=== PATIENT | male | born 1980 | race Caucasian/White ===

== ENCOUNTER 2016-09-05 11:30 | Emergency (ER) | payer OTHER ==
[2016-09-05 12:54] LABS: BILIRUBIN,URINE NEGATIVE (NEGATIVE); PH,URINE 5.5 PH (5.0-7.5)
[2016-09-05 13:02] LABS: UA w/ MICROSCOPIC CHARGE YES
[2016-09-05 13:09] LABS: UR CULTURE IF IND NOT INDICATED
--- NOTE | 2016-09-05 13:38 | XRAY Preliminary Report ---
Exam: XR Lumbar Spine 2 View IMPRESSION: Unremarkable lumbar spine series. [facility] SITE ID: [id number]
--- NOTE | 2016-09-05 13:42 | XRAY Report ---
EXAM: LUMBOSACRAL SPINE RADIOGRAPHY EXAM DATE: 09/05/2016 01:22 PM. CLINICAL HISTORY: Low back pain; lifting injury. COMPARISONS: Lumbar spine 01/08/2009. TECHNIQUE: 3 views. FINDINGS: Alignment: Normal. No spondylolisthesis or scoliosis. Bones: Five [id number] lumbar vertebral bodies are present. No fractures or bone lesions. Disks: Disk spaces maintained with minimal lower thoracic anterior osteophytes. Facets: No degenerative changes. Sacroiliac Joints: Unremarkable. Soft Tissues: Moderate amount of stool within the colon. IMPRESSION: Unremarkable lumbar spine series. [facility] Referring Provider Line: [phone] SITE ID: [id number]
--- NOTE | 2016-09-05 14:00 | ED Physician Documentation ---
PD HPI BACK PAIN - Stated complaint Stated Complaint: BACK PAIN - Chief complaint Chief Complaint: Back Pain - History obtained from History obtained from: Patient - History of Present Illness Timing - onset: How many weeks ago (2) Timing - duration: Weeks (2) Timing - details: Abrupt onset, Still present (was lifting heavy object with coworker at work and felt onset of lower back pain, more on left, which has persisted since then. Worse with bending and lifting, but also some pain just consistent unrelated to movement.) Location: Lower, Right, Left (worse on left) Quality: Pain, Spasm, Aching Associated symptoms: No: Fever, Weakness, Numbness, Incontinent of urine Improves with: No: Rest Worsened by: Movement, Lifting Contributing factors: Lifting Similar symptoms before: Has not had sx before Recently seen: Not recently seen Review of Systems Constitutional: denies: Fever, Chills GI: denies: Nausea, Vomiting, Diarrhea : denies: Dysuria, Frequency, Hematuria Skin: denies: Rash, Lesions PD PAST MEDICAL HISTORY - Past Medical History Cardiovascular: Hypertension Respiratory: None Neuro: None Endocrine/Autoimmune: None GI: Other : None HEENT: None Psych: Depression Musculoskeletal: None Derm: None - Past Surgical History Past Surgical History: No HEENT: Tonsil/Adenoidectomy - Present Medications Home Medications: Ambulatory Orders Medication Instructions Recorded Confirmed Dexamethasone [Decadron] 4 mg PO DAILY #5 tablet 09/05/16 Hydrocodone/Acetaminophen [[facility] 1 each PO Q6H PRN #20 tablet 09/05/16 5-325 Tablet] Lisinopril 50 mg PO DAILY 09/05/16 09/05/16 Methocarbamol [Robaxin] 500 mg PO Q6H PRN #25 tablet 09/05/16 Tamsulosin [Flomax] 0.4 mg PO DAILY #10 capsule 09/05/16 - Allergies Allergies/Adverse Reactions: Allergies Allergy/AdvReac Type Severity Reaction Status Date / Time No Known Drug Allergies Allergy Verified 06/09/15 20:48 - Social History Does the pt smoke?: Yes Smoking Status: Current every day smoker Does the pt drink ETOH?: Yes Does the pt have substance abuse?: No - Immunizations Immunizations are current?: Yes PD ED PE NORMAL - Vitals Vital signs reviewed: Yes - General General: Alert and oriented X 3, Well developed/nourished - Neck Neck: Supple, no meningeal sign, No adenopathy - Cardiac Cardiac: RRR, No murmur - Respiratory Respiratory: Clear bilaterally - Abdomen Abdomen: Soft, Non tender - Back Back: No spinal TTP, Other (some muscular tenderness lower back left and right. Mild left CVA tenderness. ) - Derm Derm: Normal color, Warm and dry - Extremities Extremities: No tenderness to palpate, Normal ROM s pain - Neuro Neuro: Alert and oriented X 3, No motor deficit, No sensory deficit, Normal speech Results - Vitals Vitals: Oxygen O2 Source Room air - Labs Labs: Laboratory Tests 09/05/16 12:40 Urine Color YELLOW Urine Clarity CLEAR Urine pH 5.5 Ur Specific Scott 1.025 Urine Protein NEGATIVE Urine Glucose (UA) NEGATIVE Urine Ketones NEGATIVE Urine Occult Blood MODERATE H Urine Nitrite NEGATIVE Urine Bilirubin NEGATIVE Urine Urobilinogen 0.2 (NORMAL) Ur Leukocyte Esterase NEGATIVE Urine RBC TNTC H Urine WBC 4-5 Ur Squamous Epith Cells FEW Squamous Urine Bacteria Few Urine Mucus Moderate Strands Ur Microscopic Review INDICATED Urine Culture Comments NOT INDICATED - Rads (name of study) KUB CT Radiology: Prelim report reviewed, EMP read contemporaneously (small stone left proximal ureter 3-4 mm. ) PD MEDICAL DECISION MAKING - ED course Complexity details: considered differential (Component of the back pain sounds muscular. He also has some steady pain that is from a urteral stone, presume started passing along the same time. ), d/w patient Departure - Departure Disposition: 01 Home, Self Care Clinical Impression: Ureteral stone Back pain Qualifiers: Back pain location: low back pain Chronicity: acute Back pain laterality: bilateral Sciatica presence: without sciatica Qualified Code(s): M54.5 - Low back pain Low back strain Qualifiers: Encounter type: initial encounter Qualified Code(s): S39.012A - Strain of muscle, fascia and tendon of lower back, initial encounter Condition: Stable Record reviewed to determine appropriate education?: Yes Instructions: ED Sprain Strain Lumbar, ED Stone Renal W Colic Prescriptions: Dexamethasone [Decadron] 4 mg PO DAILY #5 tablet Tamsulosin [Flomax] 0.4 mg PO DAILY #10 capsule Hydrocodone/Acetaminophen [[facility] 5-325 Tablet] 1 each PO Q6H PRN #20 tablet PRN Reason: Pain Methocarbamol [Robaxin] 500 mg PO Q6H PRN #25 tablet PRN Reason: Spasms Comments: Drink lots of fluids. Some component of your back pain sounds muscular, so limited heavy lifting, muscle relaxant, and pain med as needed. You are passing a kidney stone though, and I think the main part of your back pain is from that. Similar meds, but also add tamsulosin to decrease ureteral tone. Follow up Urology in [place] for that, call for an appt. [facility] - Urology [phone]. Forms: Activity restrictions Discharge Date/Time: 09/05/16 14:18
[2016-09-05 14:15] VITALS: BP 128/78
--- NOTE | 2016-09-05 14:16 | CT Preliminary Report ---
Exam: CT KUB IMPRESSION: There is mild left hydronephrosis secondary to a 0.3 x 0.2 cm stone within the upper left ureter. [facility] SITE ID: [id number]
--- NOTE | 2016-09-05 14:19 | CT Report ---
EXAM: CT ABDOMEN AND PELVIS (CT KUB) EXAM DATE: 09/05/2016 01:58 PM. CLINICAL HISTORY: Back pain, blood in urine. COMPARISONS: 06/09/2015. TECHNIQUE: Routine axial helical CT imaging was performed through the abdomen and pelvis without IV c ontrast. Reconstructions: Coronal and sagittal. In accordance with CT protocol optimization, one or more of the following dose reduction techniques w ere utilized for this exam: automated exposure control, adjustment of mA and/or KV based on patient s ize, or use of iterative reconstructive technique. FINDINGS: Lung Bases: Normal. Right Kidney/Ureter: No stones, hydronephrosis, or hydroureter. No perinephric fat stranding. Left Kidney/Ureter: No stones, hydronephrosis, or hydroureter. No perinephric fat stranding. Other Solid Organs: There is a 0.3 cm nonobstructing stone within the upper left kidney. There is mil d left hydronephrosis secondary to a 0.3 x 0.2 cm stone within the upper left ureter. No evidence of significant perinephric stranding. Gallbladder/Bile Ducts: Unremarkable. Peritoneal Cavity: No free fluid, free air or angelina adenopathy. Bowel is grossly unremarkable. Pelvic Organs: No bladder stones or wall thickening. Noncontrast images of the visualized pelvic orga ns are unremarkable. Vasculature: Unremarkable. Other: None. IMPRESSION: There is mild left hydronephrosis secondary to a 0.3 x 0.2 cm stone within the upper left ureter. [facility] Referring Provider Line: [phone] SITE ID: [id number]
== END 2016-09-05 14:18 | disposition home or self-care (01) ==
LOC: ED 11:30
DX: N13.2 Hydronephrosis with renal and ureteral calculous obstruction (principal); M54.5 Low back pain; S39.012A Strain of muscle, fascia and tendon of lower back, initial encounter; X50.0XXA Overexertion from strenuous movement or load, initial encounter; Y93.89 Activity, other specified; Y92.89 Other specified places as the place of occurrence of the external cause; Y99.0 Civilian activity done for income or pay; I10 Essential (primary) hypertension; F17.200 Nicotine dependence, unspecified, uncomplicated
CPT/HCPCS: 1040M; 72100; 74176; 81001; 81003; 87086; 99283; 99284

== ENCOUNTER 2017-07-16 19:30 | Inpatient (IN) | payer OTHER, MEDICAID ==
[2017-07-16] MEDS ORDERED: IBUPROFEN 800 MG TABLET PO STA (20:17)
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
[2017-07-16 21:27] LABS: BASOPHILS % (AUTO) 0.2 %; EOSINOPHILS % (AUTO) 0.1 %; HGB - HEMOGLOBIN 16.5 g/dL (14.0-18.0); LYMPHOCYTES # (AUTO) 1.6 10^3/uL (1.5-3.5); LYMPHOCYTES % (AUTO) 8.5 %; MEAN CORPUSCULAR HEMOGLOBIN 28.2 pg (27.0-31.0); MEAN CORPUSCULAR HGB CONC 32.7 g/dL (32.0-36.0); MEAN CORPUSCULAR VOLUME 86.1 fL (80.0-94.0); MEAN PLATELET VOLUME 6.5 fL (7.4-11.4); MONOCYTES # (AUTO) 1.7 10^3/uL (0.0-1.0); MONOCYTES % (AUTO) 8.8 %; NEUTROPHILS # (AUTO) 15.6 10^3/uL (1.5-6.6); NEUTROPHILS % (AUTO) 82.4 %; PLT - PLATELET COUNT 297 10^3/uL (130-450); RED BLOOD COUNT 5.85 10^6/uL (4.70-6.10); RED CELL DISTRIBUTION WIDTH 14.2 % (12.0-15.0); WHITE BLOOD COUNT 18.9 x10^3/uL (4.8-10.8)
[2017-07-16 21:36] LABS: CALCIUM 8.9 mg/dL (8.5-10.3); CREATININE 1.2 mg/dL (0.6-1.2)
--- NOTE | 2017-07-16 21:37 | XRAY Preliminary Report ---
Exam: XR RIBS W/PA CHEST LT IMPRESSION: 1. Positive for lateral left sixth, seventh, eighth rib fractures with a small left pneumothorax. Cri tical result. [facility] The above critical findings were discussed with Michael by Dr. Luis Daniel Godinez at 21:36 hrs on 07/16/17. SITE ID: [id number]
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
[2017-07-16 21:47] LABS: PT - PROTHROMBIN TIME 11.4 secs (9.9-12.6)
[2017-07-16 21:52] LABS: PLATELET ESTIMATE, MANUAL NORMAL (130-450,000) (NORMAL); PLATELET MORPHOLOGY NORMAL APPEARANCE (NORMAL); RBC MORPHOLOGY (MULTIPLE) NORMAL APPEARANCE (NORMAL)
[2017-07-16] MEDS ORDERED: HYDROmorphone 0.5 MG/0.5 ML SYRINGE IVP PRN (22:18)
--- NOTE | 2017-07-16 22:31 | CT Preliminary Report ---
Exam: CT HEAD W/O IMPRESSION: 1. No acute intracranial process. 2. Small volume left occipital subcutaneous emphysema is related to the patient's known left pneumoth orax. [facility] SITE ID: [id number]
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
[2017-07-16] MEDS: HYDROcod/ACETAM 5/325 MG TABLET PO PRN (23:03)
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
[2017-07-17] MEDS: HYDROcod/ACETAM 5/325 MG TABLET PO PRN ×4 (05:10→19:58)
[2017-07-17] MEDS: KETOROLAC 30 MG/ML VIAL IVP PRN ×2 (05:23→10:52)
[2017-07-17] MEDS: SODIUM CHLORIDE FLUSH 0.9% 10 ML SYRINGE IVP SCH ×3 (05:24→19:56)
--- NOTE | 2017-07-17 06:57 | XRAY Preliminary Report ---
Exam: XR CHEST 2 VIEW PA/LAT IMPRESSION: 1. Residual left apical pneumothorax measuring 7.4 mm. 2. Left basilar atelectasis. 3. Left rib fractures with soft tissue emphysema in the left chest wall. [facility] SITE ID: [id number]
--- NOTE | 2017-07-17 06:59 | XRAY Report ---
EXAM: CHEST RADIOGRAPHY EXAM DATE: 07/17/2017 05:24 AM. CLINICAL HISTORY: Left pneumothorax. COMPARISON: 07/16/2017. TECHNIQUE: 2 views. FINDINGS: Lungs/Pleura: Residual left apical pneumothorax measuring 7.4 mm. Left basilar atelectasis. No signif icant pleural effusion. Mediastinum: Heart and mediastinal contours are unremarkable. Other: Left rib fractures. Soft tissue emphysema in the left chest wall. IMPRESSION: 1. Residual left apical pneumothorax measuring 7.4 mm. 2. Left basilar atelectasis. 3. Left rib fractures with soft tissue emphysema in the left chest wall. [facility] Referring Provider Line: [phone] SITE ID: [id number]
[2017-07-17] MEDS ORDERED: buPROPion SR 100 MG TABLET PO SCH (09:00)
[2017-07-17] MEDS ORDERED: LORazepam 0.5 MG TABLET PO PRN (09:09)
[2017-07-17] MEDS: NICOTINE 14 MG PATCH TOP SCH (09:51)
[2017-07-17] MEDS: buPROPion XL 150 MG TABLET PO SCH (09:51)
[2017-07-17] MEDS: SERTRALINE 50 MG TABLET PO SCH (09:51)
[2017-07-17] MEDS: LISINOPRIL 20 MG TABLET PO SCH (09:51)
[2017-07-17] MEDS: SODIUM CHLORIDE FLUSH 0.9% 10 ML SYRINGE IVP PRN ×3 (10:56→12:41)
[2017-07-17] MEDS: HYDROmorphone 0.5 MG/0.5 ML SYRINGE IVP PRN ×2 (12:41)
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
[2017-07-18] MEDS: HYDROmorphone 0.5 MG/0.5 ML SYRINGE IVP PRN ×2 (00:09→05:29)
[2017-07-18] MEDS: KETOROLAC 30 MG/ML VIAL IVP PRN ×2 (05:30→11:04)
[2017-07-18] MEDS: SODIUM CHLORIDE FLUSH 0.9% 10 ML SYRINGE IVP SCH (05:33)
[2017-07-18] MEDS: HYDROcod/ACETAM 5/325 MG TABLET PO PRN ×2 (05:33→09:13)
--- NOTE | 2017-07-18 05:43 | XRAY Preliminary Report ---
Exam: XR CHEST 2 VIEW PA/LAT IMPRESSION: 1. Minimally decreased left apical pneumothorax measuring 6.8 mm. 2. Mild bibasilar atelectasis and trace left pleural effusion. [facility] SITE ID: [id number]
--- NOTE | 2017-07-18 05:46 | XRAY Report ---
EXAM: CHEST RADIOGRAPHY EXAM DATE: 07/18/2017 05:23 AM. CLINICAL HISTORY: Follow-up pneumothorax. COMPARISON: 07/17/2017. TECHNIQUE: 2 views. FINDINGS: Lungs/Pleura: Residual left apical pneumothorax measuring 6.8 mm. Mild bibasilar atelectasis. Trace l eft pleural effusion. No pneumothorax identified on the right. Mediastinum: Heart and mediastinal contours are unremarkable. Other: Left rib fractures. Soft tissue emphysema in the left chest wall. IMPRESSION: 1. Minimally decreased left apical pneumothorax measuring 6.8 mm. 2. Mild bibasilar atelectasis and trace left pleural effusion. [facility] Referring Provider Line: [phone] SITE ID: [id number]
[2017-07-18] MEDS ORDERED: HYDROmorphone 1 MG/ML SYRINGE IVP PRN ×2 (08:58→08:59)
[2017-07-18] MEDS: buPROPion XL 150 MG TABLET PO SCH (09:12)
[2017-07-18] MEDS: LISINOPRIL 20 MG TABLET PO SCH (09:12)
[2017-07-18] MEDS: SERTRALINE 50 MG TABLET PO SCH (09:14)
[2017-07-18] MEDS: SODIUM CHLORIDE FLUSH 0.9% 10 ML SYRINGE IVP PRN ×2 (09:14→11:05)
--- NOTE | 2017-07-18 09:16 | Discharge Plan ---
Discharge Plan Disposition: Home, Self Care Prescriptions: HYDROcod/ACETAM 5/325 [[place] 5/325] 1 - 2 tab PO Q4H PRN #40 tablet PRN Reason: Pain Diet: Regular Activity Restrictions: no lifting Shower Restrictions: No Driving Restrictions: Yes Weight Bearing: Full Weight Additional Instructions or Follow Up instructions: IS 10 q1H Cough and deep breathing CXR 1 week to be done prior to clinic visit No Smoking: If you smoke, Please STOP! Call for help. Follow-up with: Jered Bowling MD [Provider Admit Priv/Credential] - 1 Week
[2017-07-18] MEDS: NICOTINE 14 MG PATCH TOP SCH (11:03)
[2017-07-18 11:34] VITALS: BP 127/61
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
== END 2017-07-18 11:45 | disposition home or self-care (01) | DRG 964 ==
LOC: ED 19:30 → OBS 22:13 → MS3 07-17 08:58 → OBSVTOIN 07-17 08:58
PROVIDERS: ADMIT Surgery; ATTEND Surgery
DX: S27.0XXA Traumatic pneumothorax, initial encounter (principal); S22.42XA Multiple fractures of ribs, left side, initial encounter for closed fracture; S06.9X9A Unspecified intracranial injury with loss of consciousness of unspecified duration, initial encounter; T79.7XXA Traumatic subcutaneous emphysema, initial encounter; Y35.813A Legal intervention involving manhandling, suspect injured, initial encounter; V49.9XXA Car occupant (driver) (passenger) injured in unspecified traffic accident, initial encounter; F10.129 Alcohol abuse with intoxication, unspecified; R40.2412 Glasgow coma scale score 13-15, at arrival to emergency department; I10 Essential (primary) hypertension; F32.9 Major depressive disorder, single episode, unspecified; F17.200 Nicotine dependence, unspecified, uncomplicated
CPT/HCPCS: 70450; 71020; 80048; 85025; 85610; 86850; 86900; 86901; 96374; 96375; 99284; 99285

== ENCOUNTER 2017-07-22 09:46 | Inpatient (IN) | payer OTHER, MEDICAID ==
--- NOTE | 2017-07-22 10:19 | XRAY Preliminary Report ---
Exam: XR CHEST 2 VIEW PA/LAT IMPRESSION: 1. Interval development of small left pleural fluid (pleural effusion or hemothorax) and associated l eft basilar airspace opacity. 2. Slightly increased size of the small left apical pneumothorax. 3. Acute, displaced left 6th-8th rib fractures again demonstrated. [facility] SITE ID: [id number]
--- NOTE | 2017-07-22 10:20 | XRAY Report ---
EXAM: CHEST RADIOGRAPHY EXAM DATE: 07/22/2017 10:06 AM. CLINICAL HISTORY: Rib pain, hx of fx and pneumo. COMPARISON: 07/18/2017. TECHNIQUE: 2 views. FINDINGS: Lungs/Pleura: Interval development of small left pleural fluid with associated left basilar opacity. Slightly increased size of the left pneumothorax with up to 9 mm pleural separation at the apex (prev iously 7 mm). The right lung is clear; no right pleural effusion or pneumothorax. Mediastinum: Heart and mediastinal contours are unremarkable. Other: Displaced, acute left lateral 6th through 8th rib fractures again demonstrated. Decreased left chest wall subcutaneous emphysema with small residual. IMPRESSION: 1. Interval development of small left pleural fluid (pleural effusion or hemothorax) and associated l eft basilar airspace opacity. 2. Slightly increased size of the small left apical pneumothorax. 3. Acute, displaced left 6th-8th rib fractures again demonstrated. [facility] Referring Provider Line: [phone] SITE ID: [id number]
[2017-07-22] MEDS ORDERED: oxyCOD/ACETAMIN 5 MG/325 MG TABLET PO STA (10:37)
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
[2017-07-22] MEDS ORDERED: LACTATED RINGERS 1,000 ML IV ONE (11:56)
[2017-07-22] MEDS ORDERED: BUPIVACAINE 0.5% PF 30 ML VIAL INFIL ONE (12:25)
[2017-07-22] MEDS ORDERED: KETOROLAC 30 MG/ML VIAL IVP ONE (12:26)
[2017-07-22] MEDS ORDERED: MIDAZOLAM 2 MG/2 ML VIAL IVP ONE (12:26)
[2017-07-22] MEDS ORDERED: ONDANSETRON 4 MG/2 ML VIAL IVP ONE (12:26)
[2017-07-22] MEDS ORDERED: PROPOFOL 200 MG/20 ML VIAL IVP ONE (12:26)
[2017-07-22] MEDS ORDERED: LIDOCAINE-MPF 2% 5 ML VIAL IM ONE (12:26)
[2017-07-22] MEDS ORDERED: fentaNYL 100 MCG/2 ML VIAL IVP ONE (12:26)
--- NOTE | 2017-07-22 12:43 | OPERATIVE REPORT ---
Operative Report - General Procedure Date: 07/22/17 Planned Procedure: Left tube thoracostomy Pre-Op Diagnosis: Worsening LEFT hemo-pneumothorax Procedure Performed: LEFT tube thoracostomy Post Op Diagnosis: LEFT hemo-pneumothorax - Procedure Note Primary Surgeon: Wyatt Strong MD Anesthesia Provider: Darvin Sterling Anesthesia Technique: General LMA, Local (30 mL 1/2% marcaine) IV Fluids (mL): 700 Estimated Blood Loss (mL): 2 Drain/Tube Type: Other (32 Fr straight chest tube) Complications: None - Other Other Information/Narrative: OPERATIVE DESCRIPTION/REPORT: After verbal and written informed consent was obtained detailing the risks of infection, bleeding requiring transfusion with its risks, nerve injury, and , and after I met with the patient confirming the surgery, the site of the surgery (signing it), the patient was brought to the operative suite and placed supine on the operating table. Great care was taken to avoid pressure points to prevent pressure necrosis or nerve injury. Monitoring devices were applied along with TEDs and pneumatic compressive stockings (to prevent DVT). The patient received preoperative antibiotics for surgical prophylaxis. Arjun Sterling sedated and anethetized the patient for the entire procedure. The patient was prepped and draped in the usual sterile manner. With the patient draped my initials were clearly visible. A "time in" then confirmed that the patient was identified with 3 identifiers (name, date and medical record number), the history and physical was in the chart, the signed consent confirming the procedure was in the chart, the patient was in the correct position, the aforementioned prophylactic measures were in place or given, we had the correct personnel and equipment to complete the procedure and that anesthesia, surgery and nursing were given an opportunity to express any concerns. With the agreement of everyone in the room, we proceeded with the operation. A transverse incision was made lateral and just below the left nipple in the midaxillary line and dissection down to the ribs was performed using Bovie electrocautery. I went up over the rib and using the Mathur clamp inserted the chest tube into the chest with a return of 1200 mL of blood. The chest tube was then secured at the skin using a 2-0 silk which was Andrés sandaled about the chest tube. The skin was approximated lateral to this using a 2-0 silk mattress suture. The chest tube was then secured to the Pleur-evac. A time out was performed that confirmed that all the counts were correct, the procedure that was performed, the blood loss, the IV fluids administered, and the patients condition. Dressings were then applied. All surgical counts were reported as correct. Having tolerated the procedure well, the patient was subsequently extubated and taken to recovery room in good and stable condition. A post-procedure chest xray was ordered in recovery.
[2017-07-22] MEDS ORDERED: oxyCOD/ACETAMIN 5 MG/325 MG TABLET PO PRN (12:52)
[2017-07-22] MEDS ORDERED: HYDROmorphone 1 MG/ML SYRINGE ONE (12:54)
[2017-07-22] MEDS: HYDROmorphone 0.5 MG/0.5 ML SYRINGE IVP PRN ×3 (12:55→13:16)
[2017-07-22] MEDS ORDERED: SODIUM CHLORIDE FLUSH 0.9% 10 ML SYRINGE IVP PRN (13:02)
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
[2017-07-22] MEDS ORDERED: HYDROmorphone 1 MG/ML SYRINGE IVP PRN (13:32)
[2017-07-22] MEDS: SODIUM CHLORIDE FLUSH 0.9% 10 ML SYRINGE IVP SCH ×3 (13:40→20:16)
[2017-07-22] MEDS: DEXTROSE 5%-0.9% NACL 1,000 ML IV SCH (13:51)
[2017-07-22] MEDS: oxyCODONE 5 MG TABLET PO PRN ×3 (13:51→22:11)
[2017-07-22] MEDS: ACETAMINOPHEN 1,000 MG/100 ML 100 ML IV SCH ×2 (13:54→20:15)
[2017-07-22] MEDS: HYDROmorphone 1 MG/ML SYRINGE IVP PRN ×4 (17:51→22:11)
[2017-07-22] MEDS: SODIUM CHLORIDE FLUSH 0.9% 10 ML SYRINGE IVP PRN ×2 (17:51→18:51)
[2017-07-22] MEDS: NICOTINE 14 MG PATCH TOP SCH (17:53)
[2017-07-23] MEDS: HYDROmorphone 1 MG/ML SYRINGE IVP PRN ×16 (00:10→21:30)
[2017-07-23] MEDS: SODIUM CHLORIDE FLUSH 0.9% 10 ML SYRINGE IVP PRN ×8 (00:11→20:01)
[2017-07-23] MEDS: DEXTROSE 5%-0.9% NACL 1,000 ML IV SCH ×3 (01:01→23:02)
[2017-07-23] MEDS: oxyCODONE 5 MG TABLET PO PRN ×4 (02:01→20:00)
[2017-07-23] MEDS: ACETAMINOPHEN 1,000 MG/100 ML 100 ML IV SCH ×4 (03:16→20:01)
[2017-07-23] MEDS: LORazepam 2 MG/ML VIAL IVP PRN ×2 (03:32→10:42)
--- NOTE | 2017-07-23 05:53 | XRAY Preliminary Report ---
Exam: XR CHEST 2 VIEW PA/LAT IMPRESSION: 1. Left chest tube in place with left basilar atelectasis or consolidation and possibly a small amoun t of residual left pleural fluid. 2. Left apical pneumothorax measuring 5 mm. [facility] SITE ID: [id number]
--- NOTE | 2017-07-23 05:56 | XRAY Report ---
EXAM: CHEST RADIOGRAPHY EXAM DATE: 07/23/2017 05:42 AM. CLINICAL HISTORY: Hemo-pneumothorax s/p tube thoracostomy. COMPARISON: 07/22/2017. TECHNIQUE: 2 views. FINDINGS: Lungs/Pleura: Left basilar atelectasis or consolidation. There may be a small amount of residual pleu ral fluid on the left. Left apical pneumothorax measuring 5 mm. Right lung shows no significant abnor mality. Mediastinum: Heart and mediastinal contours are unremarkable. Other: Left rib fractures. Left chest tube in place. IMPRESSION: 1. Left chest tube in place with left basilar atelectasis or consolidation and possibly a small amoun t of residual left pleural fluid. 2. Left apical pneumothorax measuring 5 mm. [facility] Referring Provider Line: [phone] SITE ID: [id number]
[2017-07-23] MEDS: SODIUM CHLORIDE FLUSH 0.9% 10 ML SYRINGE IVP SCH ×6 (06:07→20:01)
[2017-07-23] MEDS: PANTOPRAZOLE 40 MG TABLET PO SCH (06:58)
[2017-07-23] MEDS: NICOTINE 14 MG PATCH TOP SCH (20:08)
--- NOTE | 2017-07-23 21:28 | PROVIDER PROGRESS NOTE ---
Subjective - Prog Note Date Prog Note Date: 07/23/17 Prog Note Time: 21:26 - Subjective Subjective: I was asked to see the patient by Dr. Baca with regards to the patient's pain management. While the patient does take serotonin reuptake inhibitors, and Wellbutrin at home, he does not take any long-acting or short-acting opiates in the outpatient setting. While here he has been requesting oral oxycodone as well as IV Dilaudid. Intervals of increased to almost every 30 minutes to relieve his pain. Nursing has requested that we begin a INFORMATICS MANAGER since he is pressing the button about every 30 minutes for pain. He states the pain is from the chest to. Worse with ambulation and getting up, but still present even when laying down. He reiterates that he does not take any opiates at home. Other than the chest tube pain, and rib pain, he denies any abdominal pain. Nausea. Headache. Shortness of breath. Current Medications - Current Medications Current Medications: Active Medications Bupropion HCl (Wellbutrin Xl) 150 mg PO DAILY YAW Hydromorphone HCl (Dilaudid Inj Syringe) 0.5 mg IVP Q30M PRN PRN Reason: BREAKTHROUGH PAIN Last Admin: 07/23/17 20:26 Dose: 0.5 mg Dextrose/Sodium Chloride (D5ns) 1,000 mls @ 100 mls/hr IV .Q10H YAW Last Admin: 07/23/17 12:56 Dose: 100 mls/hr Acetaminophen (Ofirmev) 100 mls @ 400 mls/hr IV Q6H YAW Last Infusion: 07/23/17 20:15 Dose: Infused Lisinopril (Zestril) 20 mg PO DAILY [facility] Lorazepam (Ativan) 0.5 mg PO TID PRN PRN Reason: Anxiety Nicotine (Nicoderm) 1 patch TOP Q24H YAW Last Admin: 07/23/17 20:08 Dose: 1 patch Oxycodone HCl (Roxicodone) 5 mg PO Q4HR PRN PRN Reason: SEVERE PAIN Last Admin: 07/23/17 20:00 Dose: 5 mg Pantoprazole Sodium (Protonix) 40 mg PO QDAC YAW Last Admin: 07/23/17 06:58 Dose: 40 mg Sertraline HCl (Zoloft) 50 mg PO DAILY YAW Sodium Chloride (Normal Saline Flush 0.9%) 10 ml IVP Q8HR YAW Last Admin: 07/23/17 15:52 Dose: 10 ml Sodium Chloride (Normal Saline Flush 0.9%) 10 ml IVP PRN PRN PRN Reason: NEEDED PER PROVIDER ORDERS Last Admin: 07/23/17 20:01 Dose: 10 ml Sodium Chloride (Normal Saline Flush 0.9%) 10 ml IVP Q8HR YAW Last Admin: 07/23/17 20:01 Dose: 10 ml Bupropion HCl [Bupropion Xl] 150 mg PO DAILY 07/17/17 LORazepam [Ativan] 0.5 - 1 mg PO TID PRN 07/17/17 Lisinopril 20 mg PO DAILY 07/17/17 Sertraline [Zoloft] 50 mg PO DAILY 07/17/17 Objective - Vital Signs/Intake & Output Reviewed Vital Signs: Yes Vital Signs: Vital Signs x48h Temp Pulse Resp BP Pulse Ox 07/23/17 15:59 36.7 C 81 16 115/69 97 Intake & Output: Intake & Output 07/20/17 07/21/17 07/22/17 07/23/17 23:59 23:59 23:59 23:59 Intake Total 2585 3315 Output Total 136 55 Balance 2449 3260 - Objective General Appearance: positive: No acute distress, Alert (Watching TV) Eyes Bilateral: positive: PERRL, EOMI ENT: positive: Dry mucous membranes Neck: positive: No JVD. negative: Stiff neck Respiratory: positive: No respiratory distress, Other (Painful rib and chest tube). negative: Wheezes, Rales, Rhonchi Cardiovascular: positive: Regular rate & rhythm, No murmur. negative: Gallop/S4 , Friction rub Abdomen: positive: Non-tender, No organomegaly, Nml bowel sounds, No distention Skin: positive: Warm, Dry Extremities: positive: Full ROM, No pedal edema Neurologic/Psychiatric: positive: Oriented x3, CN's nml (2-12), Motor nml Assessment/Plan - Problem List (1) Hemopneumothorax on left Impression: Left tube thoracostomy Pod #1 Followed by General Surgery (2) Pain associated with surgical procedure Impression: He is adamant the pain is not controlled with the current regimen. will start INFORMATICS MANAGER
[2017-07-23] MEDS: HYDROmorphone PCA 10 MG IV PRN (21:55)
[2017-07-24] MEDS: SODIUM CHLORIDE FLUSH 0.9% 10 ML SYRINGE IVP SCH ×6 (00:12→21:48)
[2017-07-24] MEDS: LORazepam 0.5 MG TABLET PO PRN ×2 (02:31→16:31)
[2017-07-24] MEDS: ACETAMINOPHEN 1,000 MG/100 ML 100 ML IV SCH ×4 (02:32→21:02)
[2017-07-24] MEDS: PANTOPRAZOLE 40 MG TABLET PO SCH (06:18)
[2017-07-24] MEDS: POLYETHYLENE GLYCOL 3350 17 GM PACKET PO SCH (08:24)
[2017-07-24] MEDS: buPROPion XL 150 MG TABLET PO SCH (08:25)
[2017-07-24] MEDS: SERTRALINE 50 MG TABLET PO SCH (08:25)
[2017-07-24] MEDS: LISINOPRIL 20 MG TABLET PO SCH (08:25)
[2017-07-24] MEDS: HYDROmorphone PCA 10 MG IV PRN ×2 (08:27→17:30)
[2017-07-24] MEDS ORDERED: DOCUSATE SODIUM 250 MG CAPSULE PO SCH (09:00)
[2017-07-24] MEDS: DEXTROSE 5%-0.9% NACL 1,000 ML IV SCH ×2 (10:16→22:06)
--- NOTE | 2017-07-24 12:13 | XRAY Report ---
DATE OF SERVICE: 07/22/2017 FRONTAL CHEST: 07/22/2017 CLINICAL INDICATION: Chest tube placement. COMPARISON: 0956 hours, 07/18/2017, 07/16/2017. FINDINGS: Frontal view of the chest demonstrates a left chest tube in place. Residual medial and apical left pneumothorax is noted. Left pleural fluid has decreased. The right lung remains clear. No right pneumothorax. Left rib fractures appear stable. IMPRESSION: Residual left medial and apical pneumothorax following left chest tube placement. Decrease in left pleural fluid. TD: 07/22/2017 20:33 MTDD
[2017-07-24] MEDS: DOCUSATE SODIUM 250 MG CAPSULE PO SCH (16:31)
[2017-07-24] MEDS: NICOTINE 14 MG PATCH TOP SCH (17:39)
[2017-07-24] MEDS: oxyCODONE 5 MG TABLET PO PRN (18:24)
--- NOTE | 2017-07-24 20:11 | XRAY Report ---
DATE OF SERVICE: 07/24/2017 FRONTAL CHEST: 07/24/2017 CLINICAL INDICATION: Left chest tube. COMPARISON: 07/23/2017 FINDINGS: Frontal view of the chest demonstrates a stable left chest tube. Residual left apical pne umothorax measures 4 mm. There is increasing left basilar atelectasis or infiltrate. The right lung remains c lear. No right effusion or pneumothorax is seen. IMPRESSION: A 4 mm residual left apical pneumothorax. Increasing atelectasis or consolidation at th e left base. Stable chest tube. TD: 07/24/2017 10:20
[2017-07-25] MEDS: HYDROmorphone PCA 10 MG IV PRN ×3 (01:29→20:05)
[2017-07-25] MEDS: ACETAMINOPHEN 1,000 MG/100 ML 100 ML IV SCH ×4 (01:34→20:03)
[2017-07-25] MEDS: SODIUM CHLORIDE FLUSH 0.9% 10 ML SYRINGE IVP SCH ×6 (01:38→20:18)
--- NOTE | 2017-07-25 06:46 | XRAY Report ---
EXAM: CHEST RADIOGRAPHY EXAM DATE: 07/25/2017 05:25 AM. CLINICAL HISTORY: Left chest tube. COMPARISON: 07/24/2017.. TECHNIQUE: 1 view. FINDINGS: Lungs/Pleura: Left apical pneumothorax appears decreased, measuring about 3 mm. Persistent atelectasi s or infiltrate at the left base. Possible small left pleural effusion. Minimal right basilar opacity is unchanged. Mediastinum: Within exam limitations, the cardiomediastinal contour is normal. Other: Left rib fractures. Left chest tube in place. IMPRESSION: 1. Decreased left pneumothorax measuring about 3 mm. 2. Otherwise similar compared with the prior exam. [facility] Referring Provider Line: [phone] SITE ID: [id number]
[2017-07-25] MEDS: PANTOPRAZOLE 40 MG TABLET PO SCH (07:03)
[2017-07-25] MEDS: SERTRALINE 50 MG TABLET PO SCH (08:54)
[2017-07-25] MEDS: buPROPion XL 150 MG TABLET PO SCH (08:54)
[2017-07-25] MEDS: POLYETHYLENE GLYCOL 3350 17 GM PACKET PO SCH (08:54)
[2017-07-25] MEDS: LISINOPRIL 20 MG TABLET PO SCH (08:54)
[2017-07-25] MEDS: DOCUSATE SODIUM 250 MG CAPSULE PO SCH ×2 (08:54→20:03)
[2017-07-25] MEDS: DEXTROSE 5%-0.9% NACL 1,000 ML IV SCH ×2 (10:02→20:03)
--- NOTE | 2017-07-25 10:25 | PROVIDER PROGRESS NOTE ---
Subjective - General Admit Date: 07/22/17 Procedure Date: 07/22/17 Post Op Days: 3 - Other Other Information/Narrative: c/o pain at chest tube site Objective - Patient Data Vital Signs: Vital Signs x48h Temp Pulse Resp BP Pulse Ox 07/25/17 10:00 14 07/25/17 07:42 36.6 C 75 18 130/69 97 07/25/17 06:00 14 Intake & Output: Intake and Output Totals x24h 07/23/17 07/24/17 07/25/17 23:59 23:59 23:59 Intake Total 4315 3730 1850 Output Total 65 2770 1563 Balance 4250 960 287 - Current Medications Current Medications: Current Medications Generic Name Dose Route Start Last Admin Trade Name Freq PRN Reason Stop Dose Admin Bupropion HCl 150 mg 07/24/17 09:00 07/25/17 08:54 Wellbutrin Xl PO 150 mg DAILY YAW Administration Docusate Sodium 250 mg 07/24/17 17:00 07/25/17 08:54 Colace 250mg Capsule PO 250 mg BID YAW Administration Hydromorphone HCl 10 mg 07/23/17 21:32 07/25/17 01:29 Dilaudid Controller Instructor (Use Controller Instructor Order Set) IV 10 mg PRN PRN Administration PAIN Protocol Dextrose/Sodium Chloride 1,000 mls @ 100 mls/hr 07/22/17 14:00 07/25/17 10:02 D5ns IV 100 mls/hr .Q10H YAW Administration Acetaminophen 100 mls @ 400 mls/hr 07/22/17 14:00 07/25/17 09:10 Ofirmev IV Infused Q6H YAW Infusion Lisinopril 20 mg 07/24/17 09:00 07/25/17 08:54 Zestril PO 20 mg DAILY YAW Administration Lorazepam 0.5 mg 07/23/17 21:25 07/24/17 16:31 Ativan PO 0.5 mg TID PRN Administration Anxiety Nicotine 1 patch 07/22/17 18:00 07/24/17 17:39 Nicoderm TOP 1 patch Q24H YAW Administration Pantoprazole Sodium 40 mg 07/23/17 07:00 07/25/17 07:03 Protonix PO Not Given QDAC YAW Polyethylene Glycol 17 gm 07/24/17 09:00 07/25/17 08:54 Miralax PO 17 gm DAILY YAW Administration Sertraline HCl 50 mg 07/24/17 09:00 07/25/17 08:54 Zoloft PO 50 mg DAILY YAW Administration Sodium Chloride 10 ml 07/22/17 14:00 07/25/17 01:38 Normal Saline Flush 0.9% IVP Not Given Q8HR YAW Sodium Chloride 10 ml 07/22/17 12:52 07/23/17 20:01 Normal Saline Flush 0.9% IVP 10 ml PRN PRN Administration NEEDED PER PROVIDER ORDERS Sodium Chloride 10 ml 07/22/17 22:00 07/25/17 01:38 Normal Saline Flush 0.9% IVP Not Given Q8HR YAW - Physical Exam Comments/Other: no air leak on chest tube Impression/Plan - Problem List Problem List: s/p chest tube placement for hemopneumothorax. Still has small pneumothorax. Drainage decreased to <100 ml/24hr. Continue chest to suction Check f/u chest xray in am Pain control
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
[2017-07-25] MEDS: LORazepam 0.5 MG TABLET PO PRN (16:45)
[2017-07-25] MEDS: NICOTINE 14 MG PATCH TOP SCH (18:56)
[2017-07-26] MEDS: LORazepam 0.5 MG TABLET PO PRN ×2 (00:47→08:24)
[2017-07-26] MEDS: ACETAMINOPHEN 1,000 MG/100 ML 100 ML IV SCH ×3 (01:44→13:27)
[2017-07-26] MEDS: DEXTROSE 5%-0.9% NACL 1,000 ML IV SCH (06:30)
[2017-07-26] MEDS: PANTOPRAZOLE 40 MG TABLET PO SCH (06:30)
[2017-07-26] MEDS: HYDROmorphone PCA 10 MG IV PRN ×2 (06:51→14:33)
[2017-07-26] MEDS: SODIUM CHLORIDE FLUSH 0.9% 10 ML SYRINGE IVP SCH ×4 (07:11→13:02)
--- NOTE | 2017-07-26 07:13 | XRAY Report ---
EXAM: CHEST RADIOGRAPHY EXAM DATE: 07/26/2017 06:11 AM. CLINICAL HISTORY: Left chest tube. COMPARISON: 07/25/2017. TECHNIQUE: 2 views. FINDINGS: Lungs/Pleura: Left basilar atelectasis or infiltrate and small left pleural effusion. Small residual left apical pneumothorax measuring about 4 mm. Right lung appears clear. Mediastinum: Heart and mediastinal contours are unremarkable. Other: Left rib fractures. Left chest tube in place. IMPRESSION: 1. Left chest tube remains in place. Small residual left apical pneumothorax measuring about 4 mm. 2. Left basilar opacity and pleural effusion similar compared with the prior exam. [facility] Referring Provider Line: [phone] SITE ID: [id number]
[2017-07-26] MEDS: POLYETHYLENE GLYCOL 3350 17 GM PACKET PO SCH (08:23)
[2017-07-26] MEDS: buPROPion XL 150 MG TABLET PO SCH (08:24)
[2017-07-26] MEDS: SERTRALINE 50 MG TABLET PO SCH (08:24)
[2017-07-26] MEDS: DOCUSATE SODIUM 250 MG CAPSULE PO SCH (08:24)
[2017-07-26] MEDS: LISINOPRIL 20 MG TABLET PO SCH (08:24)
[2017-07-26] MEDS ORDERED: KETOROLAC 30 MG/ML VIAL IVP ONE (11:29)
[2017-07-26] MEDS ORDERED: HYDROmorphone 1 MG/ML SYRINGE IVP SCH (11:30)
--- NOTE | 2017-07-26 16:37 | XRAY Report ---
EXAM: CHEST RADIOGRAPHY EXAM DATE: 07/26/2017 04:10 PM. CLINICAL HISTORY: Chest tube removal. COMPARISON: 07/26/2017. TECHNIQUE: 2 views. FINDINGS: Lungs/Pleura: Interval removal left chest tube. Left base opacity is relatively stable. The right rach g remains clear. There is a small, stable left apical pneumothorax. Mediastinum: Heart size is unchanged. Other: There are displaced left-sided rib fractures. IMPRESSION: 1. Interval removal left chest tube. 2. Stable small left apical pneumothorax. 3. Stable opacity within the left base. 4. No new abnormalities are seen. [facility] Referring Provider Line: [phone] SITE ID: [id number]
--- NOTE | 2017-07-26 18:22 | Discharge Plan ---
Discharge Plan Disposition: Home, Self Care Prescriptions: oxyCODONE/ACET 5/325 [Percocet 5 mg/325 mg] 2 each PO Q4-6H #40 tablet Diet: Regular Activity Restrictions: no lifting Shower Restrictions: Yes Driving Restrictions: Yes Additional Instructions or Follow Up instructions: May remove dressing in 4 days and shower. May cover incision with bandaid after dressing removal. Send IS home with patient to use. No Smoking: If you smoke, Please STOP! Call for help. Follow-up with: Jessy Gotti ARNP [Primary Care Provider] - 2 Weeks Jered Bowling MD [Provider Admit Priv/Credential] - 1 Week
[2017-07-26 19:00] VITALS: BP 133/67
--- NOTE | 2017-07-29 15:17 | XRAY Report ---
DATE OF SERVICE: TWO VIEW CHEST: 07/25/2017 CLINICAL INDICATION: Chest tube. COMPARISON: 0510 hours. FINDINGS: Frontal and lateral views of the chest demonstrate stable left chest tube. Residual left apical pneumothorax again measures 4 mm. Left basilar airspace disease has improved. Left hemothorax appea rs stable. The right lung remains clear. IMPRESSION: Persistent residual left pneumothorax measuring 4 mm. Improving left basilar airspace d isease. Stable residual left hemothorax. TD: 07/25/2017 23:22
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
== END 2017-07-26 19:03 | disposition home or self-care (01) | DRG 950 ==
LOC: ED 09:46 → SDS 11:20 → MS2 13:02
PROVIDERS: ADMIT Surgery; ATTEND Surgery
PROC: 0W9B00Z Drainage of Left Pleural Cavity with Drainage Device, Open Approach (ICD-10-PCS; principal; 2017-07-22 11:15)
DX: S27.2XXD Traumatic hemopneumothorax, subsequent encounter (principal); S22.32XG Fracture of one rib, left side, subsequent encounter for fracture with delayed healing; F32.9 Major depressive disorder, single episode, unspecified; F41.9 Anxiety disorder, unspecified; I10 Essential (primary) hypertension; X58.XXXD Exposure to other specified factors, subsequent encounter; F17.200 Nicotine dependence, unspecified, uncomplicated; Y35.811D Legal intervention involving manhandling, law enforcement official injured, subsequent encounter; Z79.891 Long term (current) use of opiate analgesic; Z79.899 Other long term (current) drug therapy
CPT/HCPCS: 71010; 71020; 99283; 99284

== ENCOUNTER 2017-07-27 08:08 | Emergency (ER) | payer OTHER, MEDICAID ==
[2017-07-27 08:49] VITALS: BP 130/84
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
--- NOTE | 2017-07-27 10:41 | XRAY Preliminary Report ---
Exam: XR CHEST 2 VIEW PA/LAT IMPRESSION: 1. Stable left apical pneumothorax measuring 2 mm. 2. Stable left basilar opacity and left pleural effusion. 3. Multiple left-sided fractures. [facility] SITE ID: [id number]
--- NOTE | 2017-07-27 10:42 | XRAY Report ---
EXAM: CHEST RADIOGRAPHY EXAM DATE: 07/27/2017 08:36 AM. CLINICAL HISTORY: Patient had chest tube removed yesterday. Pain. Shortness of breath. COMPARISON: 07/26/2017. TECHNIQUE: 2 views. FINDINGS: Lungs/Pleura: Tiny 2 mm left apical pneumothorax is noted. Left basilar opacity and left pleural effu pia is unchanged. Right lung is clear. Mediastinum: Cardiomediastinal contours are normal. Other: Multiple left-sided rib fractures are stable. Rightward curvature of the thoracic spine. IMPRESSION: 1. Stable left apical pneumothorax measuring 2 mm. 2. Stable left basilar opacity and left pleural effusion. 3. Multiple left-sided fractures. [facility] Referring Provider Line: [phone] SITE ID: [id number]
== END 2017-07-27 10:34 | disposition left against medical advice (07) ==
LOC: ED 08:08
DX: Z48.01 Encounter for change or removal of surgical wound dressing (principal); J93.9 Pneumothorax, unspecified; S22.42XD Multiple fractures of ribs, left side, subsequent encounter for fracture with routine healing; X58.XXXD Exposure to other specified factors, subsequent encounter; I10 Essential (primary) hypertension; F17.200 Nicotine dependence, unspecified, uncomplicated
CPT/HCPCS: 71020; 99282; 99283

== ENCOUNTER 2017-08-27 13:11 | Outpatient (CLI) | payer MEDICAID ==
--- NOTE | 2017-08-27 15:31 | XRAY Report ---
DATE OF SERVICE: 08/27/2017 LEFT RIBS: 08/27/2017 CLINICAL INDICATION: Followup fractures. COMPARISON: 07/27/2017. FINDINGS: Oblique views of the left ribs demonstrate stable displacement of the lateral 6th, 7th, and 8th rib fractures. No new fracture is appreciated. Small residual pleural effusion is noted. No definite residual pneumothorax is identified on these rib films. IMPRESSION: STABLE DISPLACED LEFT RIB FRACTURES. TD: 08/27/2017 16:31
== END 2017-08-27 13:12 | disposition home or self-care (01) ==
LOC: DI 13:11
PROVIDERS: ATTEND Nurse Practitioner Family
DX: S22.42XD Multiple fractures of ribs, left side, subsequent encounter for fracture with routine healing (principal)

== ENCOUNTER 2018-05-06 10:05 | Outpatient (CLI) | payer SELFPAY | END 2018-05-06 10:06 | disposition critical access hospital (66) | LOC: EMS 10:05 | PROVIDERS: ATTEND Surgery | DX: R10.9 Unspecified abdominal pain (principal) | CPT/HCPCS: A0425; A0429 ==

== ENCOUNTER 2018-05-06 10:29 | Emergency (ER) | payer SELFPAY ==
[2018-05-06] MEDS ORDERED: HYDROmorphone 1 MG/ML CARPUJECT IVP STA (11:27)
--- NOTE | 2018-05-06 11:29 | ED Physician Documentation ---
PD HPI ABD PAIN - Stated complaint Stated Complaint: LOWER ABD PX - Chief complaint Chief Complaint: Abd Pain - History obtained from History obtained from: Patient - History of Present Illness Timing - onset: Other (Healthy 37-year-old gentleman has had on and off lower abdominal and testicular pain for the last 2 weeks. Much worse today after a walk. Pain is now severe. There is no associated nausea, vomiting, changes in bowel movements, urinary complaints. He denies specific risk factors for STDs. He denies fevers. He has not tried anything for the pain. He is never had this before a couple of weeks ago.) Review of Systems Ten Systems: 10 systems reviewed and negative Constitutional: denies: Fever, Chills Cardiac: denies: Chest pain / pressure, Palpitations Respiratory: denies: Dyspnea, Cough GI: reports: Abdominal Pain. denies: Nausea, Vomiting, Constipation, Diarrhea : reports: Testicular pain. denies: Testicular mass PD PAST MEDICAL HISTORY - Past Medical History Past Medical History: Yes Cardiovascular: Hypertension Respiratory: None Endocrine/Autoimmune: None GI: Other : None HEENT: None Psych: Depression Musculoskeletal: None Derm: None - Past Surgical History Past Surgical History: Yes HEENT: Tonsil/Adenoidectomy - Present Medications Home Medications: Ambulatory Orders Medication Instructions Recorded Confirmed Bupropion HCl [Bupropion Xl] 150 mg PO DAILY 07/17/17 07/27/17 LORazepam [Ativan] 0.5 - 1 mg PO TID PRN 07/17/17 07/27/17 Lisinopril 20 mg PO DAILY 07/17/17 07/27/17 Sertraline [Zoloft] 50 mg PO DAILY 07/17/17 07/27/17 Docusate Sodium 250Mg Capsule 250 mg PO BID capsule 07/26/17 07/27/17 [Colace 250Mg Capsule] oxyCODONE/ACET 5/325 [Percocet 5 2 each PO Q4-6H #40 tablet 07/26/17 07/27/17 mg/325 mg] - Allergies Allergies/Adverse Reactions: Allergies Allergy/AdvReac Type Severity Reaction Status Date / Time No Known Drug Allergies Allergy Verified 05/06/18 10:40 - Social History Does the pt smoke?: Yes Smoking Status: Current every day smoker Does the pt drink ETOH?: No Does the pt have substance abuse?: No - Family History Family history: reports: Non contributory - Immunizations Immunizations are current?: Yes - POLST Patient has POLST: No PD ED PE NORMAL - Vitals Vital signs reviewed: Yes - General General: Alert and oriented X 3, Other (He appears uncomfortable) - HEENT HEENT: PERRL, EOMI - Neck Neck: Supple, no meningeal sign, No bony TTP - Cardiac Cardiac: RRR, No murmur - Respiratory Respiratory: No respiratory distress, Clear bilaterally - Abdomen Abdomen: Normal bowel sounds, Soft, Other (The lower abdomen is nontender, he does have tenderness in the right inguinal area and right greater than left testicle. He has normal lie but no cremasteric reflexes bilaterally. No obvious mass but difficult to palpate specifically because of the tenderness.) - Back Back: No CVA TTP, No spinal TTP - Derm Derm: Normal color, Warm and dry - Extremities Extremities: No edema, No calf tenderness / cord - Neuro Neuro: Alert and oriented X 3, Normal speech Results - Vitals Vitals: Vital Signs - 24 hr 05/06/18 10:35 Temperature 36.3 C L Heart Rate 82 Respiratory 18 Rate Blood Pressure 151/101 H O2 Saturation 98 Oxygen O2 Source Room air PD MEDICAL DECISION MAKING - ED course ED course: 37-year-old gentleman with kind of a an acute on subacute scrotum and it was reported to me at 1:10 PM by the radiologist that he appeared to have a left torsion with some flow remaining. We called [facility], they like us do not have urology. [facility] was on divert and could not accept the transfer. [facility] was called and they have limited beds but we called the ER given the time sensitive nature of the transfer. He was accepted by Dr. Hinton to [facility] ED at 1:16 PM and cobras were completed and a stat rig was paged and took him directly there. - Sepsis Event Vital Signs: Vital Signs - 24 hr 05/06/18 10:35 Temperature 36.3 C L Heart Rate 82 Respiratory 18 Rate Blood Pressure 151/101 H O2 Saturation 98 Oxygen O2 Source Room air Departure - Departure Disposition: 02 Transfer Acute Care Hosp Clinical Impression: Testicular torsion Condition: Serious
[2018-05-06 11:51] LABS: BASOPHILS # (AUTO) 0.1 10^3/uL (0.0-0.1); BASOPHILS % (AUTO) 0.5 %; EOSINOPHILS % (AUTO) 0.5 %; HGB - HEMOGLOBIN 16.4 g/dL (14.0-18.0); LYMPHOCYTES # (AUTO) 0.9 10^3/uL (1.5-3.5); LYMPHOCYTES % (AUTO) 9.9 %; MEAN CORPUSCULAR HEMOGLOBIN 30.1 pg (27.0-31.0); MEAN CORPUSCULAR HGB CONC 35.4 g/dL (32.0-36.0); MEAN CORPUSCULAR VOLUME 85.1 fL (80.0-94.0); MEAN PLATELET VOLUME 6.6 fL (7.4-11.4); MONOCYTES # (AUTO) 0.6 10^3/uL (0.0-1.0); MONOCYTES % (AUTO) 6.4 %; NEUTROPHILS # (AUTO) 7.8 10^3/uL (1.5-6.6); NEUTROPHILS % (AUTO) 82.7 %; PLT - PLATELET COUNT 223 10^3/uL (130-450); RED BLOOD COUNT 5.43 10^6/uL (4.70-6.10); RED CELL DISTRIBUTION WIDTH 13.4 % (12.0-15.0); WHITE BLOOD COUNT 9.5 x10^3/uL (4.8-10.8)
[2018-05-06 12:12] LABS: ALBUMIN 4.1 g/dL (3.2-5.5); ALBUMIN/GLOBULIN RATIO 1.9 (1.0-2.2); BILIRUBIN,TOTAL 1.4 mg/dL (0.2-1.0); CALCIUM 9.2 mg/dL (8.5-10.3); CREATININE 0.9 mg/dL (0.6-1.2); TOTAL PROTEIN 6.3 g/dL (6.7-8.2)
[2018-05-06 13:25] VITALS: BP 136/97
--- NOTE | 2018-05-06 13:51 | Ultrasound Report ---
Reason: testicular pain Procedure Date: 05/06/2018 Accession Number: [id number] / [id number] Procedure: US - Testicle w/Doppler CPT Code: FULL RESULT: EXAM: SCROTAL ULTRASOUND EXAM DATE: 05/06/2018 01:29 PM. CLINICAL HISTORY: Testicular pain. COMPARISON: None. TECHNIQUE: Real-time scanning was performed with static images obtained. Both color-flow and Doppler spectral analysis were utilized. FINDINGS: Right: Normal size and echotexture. No mass, calcification, or abnormal blood flow. Testis: 4.2 x 2.6 x 3.2 cm. Epididymis: 3.8 cm length with a caliber of 0.9 x 1.0 cm. Normal size and echotexture. No mass or abnormal blood flow. Hydrocele: None. Varicocele: None. Left: Testis: 3.7 x 2.8 x 3.0 cm. The size is normal and demonstrates microlithiasis with preserved echotexture and detectable flow centrally. The spermatic cord leading into the testis makes a 360 degree turn in keeping with torsion. Epididymis: 2.6 x 0.8 x 1.7 cm. Normal size with microlithiasis. No mass or abnormal blood flow. Hydrocele: None. Varicocele: None. IMPRESSION: Left testicular torsion with preserved perfusion to the left testis at this time. CRITICAL RESULT: The findings were discussed with Dr. Rodriguez on 05/06/2018 at approximately 1:15 PM at the time of scanning. KENDAL
== END 2018-05-06 13:20 | disposition short-term general hospital (02) ==
LOC: EDUNIT# → EDBD → ED 10:29
DX: I10 Essential (primary) hypertension (principal); F17.200 Nicotine dependence, unspecified, uncomplicated; N44.00 Torsion of testis, unspecified
CPT/HCPCS: 36415; 76870; 80053; 83690; 85025; 93975; 96374; 99284; J1170

== ENCOUNTER 2018-05-06 13:25 | Outpatient (CLI) | payer SELFPAY | END 2018-05-06 13:26 | disposition short-term general hospital (02) | LOC: EMS 13:25 | PROVIDERS: ATTEND Surgery | DX: N44.00 Torsion of testis, unspecified (principal) | CPT/HCPCS: A0425; A0427 ==

== ENCOUNTER 2019-01-20 18:16 | Outpatient (CLI) | payer MEDICAID | END 2019-01-20 18:17 | disposition EMS.NT | LOC: EMS 18:16 | PROVIDERS: ATTEND Surgery | DX: S30.851A Superficial foreign body of abdominal wall, initial encounter (principal); Y35.893A Legal intervention involving other specified means, suspect injured, initial encounter ==

== ENCOUNTER 2019-04-28 12:15 | Emergency (ER) | payer MEDICAID ==
[2019-04-28 12:56] LABS: BILIRUBIN,URINE NEGATIVE (NEGATIVE); GLUCOSE, URINE (UA) NEGATIVE (NEGATIVE); KETONES,URINE (UA) NEGATIVE (NEGATIVE); LEUKOCYTE ESTERASE, URINE NEGATIVE (NEGATIVE); NITRITE,URINE NEGATIVE (NEGATIVE); OCCULT BLOOD,URINE NEGATIVE (NEGATIVE); PROTEIN,URINE NEGATIVE (NEGATIVE); UROBILINOGEN,URINE 0.2 (NORMAL) E.U./dL (NORMAL)
[2019-04-28 12:57] LABS: CLARITY,URINE CLEAR (CLEAR)
--- NOTE | 2019-04-28 14:02 | ED Physician Documentation ---
PD HPI MALE - Stated complaint Stated Complaint: MALE - Chief complaint Chief Complaint: General - History obtained from History obtained from: Patient - History of Present Illness Timing - onset: How many hours ago (several), Today Timing - duration: Hours Timing - details: Abrupt onset, Now resolved Associated symptoms: Testiclar pain. No: Dysuria, Urinary frequency, Discharge, Genital sore / lesion, Scrotal swelling, Abdominal pain Similar symptoms before: No diagnosis (has similar about a year ago, with U/S showing diminished flow and was sent to [place] (no closer beds available) to see Urologist. Review there of the U/S and he was not having symptoms anymore, so not treated. Suspicion for intermittent torsion. Has not had follow up with Urologist. Has similar abrupt pains randomly the past year, occurring more often the past month or so. Lasts hour or so, then improves. Not related to particular activity nor position. No consistent pain. No trouble urinating.) Recently seen: Not recently seen Review of Systems Nose: denies: Rhinorrhea / runny nose, Congestion Throat: denies: Sore throat Respiratory: denies: Cough GI: reports: Nausea (has nausea when the pain is significant.). denies: Abdominal Pain, Vomiting, Diarrhea : reports: Testicular pain. denies: Dysuria, Frequency, Discharge, Testicular mass Skin: denies: Rash, Lesions PD PAST MEDICAL HISTORY - Past Medical History Cardiovascular: Hypertension Respiratory: None Endocrine/Autoimmune: None GI: Other : None HEENT: None Psych: Depression Musculoskeletal: None Derm: None - Past Surgical History Past Surgical History: Yes HEENT: Tonsil/Adenoidectomy - Present Medications Home Medications: Ambulatory Orders Medication Instructions Recorded Confirmed Bupropion HCl [Bupropion Xl] 150 mg PO DAILY 07/17/17 07/27/17 LORazepam [Ativan] 0.5 - 1 mg PO TID PRN 07/17/17 07/27/17 Lisinopril 20 mg PO DAILY 07/17/17 07/27/17 Sertraline [Zoloft] 50 mg PO DAILY 07/17/17 07/27/17 Docusate Sodium 250Mg Capsule 250 mg PO BID capsule 07/26/17 07/27/17 [Colace 250Mg Capsule] oxyCODONE/ACET 5/325 [Percocet 5 2 each PO Q4-6H #40 tablet 07/26/17 07/27/17 mg/325 mg] Doxycycline Hyclate 100 mg PO BID #20 capsule 04/28/19 Naproxen 500 mg PO BID #20 tablet 04/28/19 - Allergies Allergies/Adverse Reactions: Allergies Allergy/AdvReac Type Severity Reaction Status Date / Time No Known Drug Allergies Allergy Verified 04/28/19 12:20 - Social History Does the pt smoke?: Yes Smoking Status: Current every day smoker Does the pt drink ETOH?: No Does the pt have substance abuse?: No - Immunizations Immunizations are current?: Yes - POLST Patient has POLST: No PD ED PE NORMAL - Vitals Vital signs reviewed: Yes - General General: Alert and oriented X 3, No acute distress (he is not still having the pain. ), Well developed/nourished - Male Male : Other (he has somewhat less cremaster response on the left. The left testicle has a somewhat flat lie. It is mildly tender. No swelling of the testicle. No tenderness nor swelling of the epididymis and no hernia noted. Right testicle is normal lie and size and not tender. ) - Back Back: No CVA TTP - Derm Derm: Normal color, Warm and dry, No rash - Neuro Neuro: Alert and oriented X 3, No motor deficit, Normal speech Results - Vitals Vitals: Oxygen O2 Source Room air - Labs Labs: Laboratory Tests 04/28/19 12:45 Urine Color YELLOW Urine Clarity CLEAR Urine pH 6.0 Ur Specific [place] >=1.030 H Urine Protein NEGATIVE Urine Glucose (UA) NEGATIVE Urine Ketones NEGATIVE Urine Occult Blood NEGATIVE Urine Nitrite NEGATIVE Urine Bilirubin NEGATIVE Urine Urobilinogen 0.2 (NORMAL) Ur Leukocyte Esterase NEGATIVE Ur Microscopic Review NOT INDICATED Urine Culture Comments NOT INDICATED PD MEDICAL DECISION MAKING - ED course Complexity details: reviewed results (patient declines U/S since not having pain right now. This is reasonable, though U/S might show other causes as well, but clinically seems not torsed at this time. ), considered differential (his story is c/w intermittent torsion. Does not feel epididymal but can treat for possible infectious or inflammatory orchitis. Testicle does not feel enlarged per se though. Will refer him to Urology. Given his intermittent significant pain symptoms, he would prefer if Urologist would do the orchiopexy with presumption of intermittent torsion ), d/w patient Departure - Departure Disposition: 01 Home, Self Care Clinical Impression: Pain in left testicle Condition: Stable Record reviewed to determine appropriate education?: Yes Instructions: ED Testicular Pain [facility] Follow-Up: Will Fischer MD [Provider Admit Priv/Credential] - Prescriptions: Doxycycline Hyclate 100 mg PO BID #20 capsule Naproxen 500 mg PO BID #20 tablet Comments: This potentially could be infectious or inflammatory so we can try the doxycycline antibiotic and naproxen anti-inflammatory regularly for the next 10 days. Take them twice a day with food. Also concurrently call the urologist for an appointment for the next week or 2 (there soonest appointment). Follow- up with them regarding the concern for intermittent torsion. Your symptoms do sound concerning for that. Return to the ER if you have a consistent pain in the testicle that does not improve in a timely fashion as it has been doing. Discharge Date/Time: 04/28/19 14:32
[2019-04-28 14:32] VITALS: BP 166/94
== END 2019-04-28 14:32 | disposition home or self-care (01) ==
LOC: ED 12:15
DX: N50.812 Left testicular pain (principal); I10 Essential (primary) hypertension; F17.200 Nicotine dependence, unspecified, uncomplicated
CPT/HCPCS: 81001; 81003; 87086; 99283

== ENCOUNTER 2019-06-27 10:17 | Emergency (ER) | payer MEDICAID ==
[2019-06-27 10:37] LABS: BASOPHILS % (AUTO) 0.2 %; EOSINOPHILS # (AUTO) 0.1 10^3/uL (0.0-0.7); EOSINOPHILS % (AUTO) 0.9 %; HGB - HEMOGLOBIN 16.3 g/dL (14.0-18.0); LYMPHOCYTES # (AUTO) 1.1 10^3/uL (1.5-3.5); LYMPHOCYTES % (AUTO) 12.6 %; MEAN CORPUSCULAR HEMOGLOBIN 28.4 pg (27.0-31.0); MEAN CORPUSCULAR HGB CONC 33.7 g/dL (32.0-36.0); MEAN CORPUSCULAR VOLUME 84.5 fL (80.0-94.0); MONOCYTES # (AUTO) 0.9 10^3/uL (0.0-1.0); MONOCYTES % (AUTO) 9.5 %; NEUTROPHILS # (AUTO) 6.8 10^3/uL (1.5-6.6); NEUTROPHILS % (AUTO) 76.5 %; PLT - PLATELET COUNT 258 10^3/uL (130-450); RED BLOOD COUNT 5.73 10^6/uL (4.70-6.10); RED CELL DISTRIBUTION WIDTH 13.1 % (12.0-15.0)
[2019-06-27 10:53] LABS: ALBUMIN 3.9 g/dL (3.2-5.5); ALBUMIN/GLOBULIN RATIO 1.4 (1.0-2.2); BILIRUBIN,TOTAL 0.5 mg/dL (0.2-1.0); CALCIUM 9.2 mg/dL (8.5-10.3); TOTAL PROTEIN 6.7 g/dL (6.7-8.2)
[2019-06-27 11:53] LABS: BILIRUBIN,URINE NEGATIVE (NEGATIVE); GLUCOSE, URINE (UA) NEGATIVE (NEGATIVE); KETONES,URINE (UA) NEGATIVE (NEGATIVE); LEUKOCYTE ESTERASE, URINE NEGATIVE (NEGATIVE); NITRITE,URINE NEGATIVE (NEGATIVE); OCCULT BLOOD,URINE NEGATIVE (NEGATIVE); PROTEIN,URINE NEGATIVE (NEGATIVE); UROBILINOGEN,URINE 0.2 (NORMAL) E.U./dL (NORMAL)
[2019-06-27 11:55] LABS: CLARITY,URINE CLOUDY (CLEAR)
--- NOTE | 2019-06-27 12:04 | ED Physician Documentation ---
History of Present Illness - Stated complaint Stated Complaint: BACK PX - Chief complaint Chief Complaint: Abd Pain - Additonal information Additional information: This is a 38-year-old male presents with intermittent suprapubic and bilateral flank pain since January. Patient states the pain is sometimes sharp, sometimes pressure-like, it starts in his mid suprapubic region and then will occasionally radiate up toward his back. He has a kidney stones in the past, and at times it feels like kidney stones to him, at times it feels different. He denies any pain or burning with urination, no blood in his urine. He occasionally will have some slight pain in his left testicle, and intermittently all of his symptoms will resolve. He has to turn himself into go to long-term tomorrow and wanted to get checked out before going to long-term. Review of Systems Constitutional: denies: Fever Cardiac: denies: Chest pain / pressure Respiratory: denies: Dyspnea GI: reports: Abdominal Pain : denies: Dysuria Skin: denies: Rash Musculoskeletal: reports: Back pain Neurologic: denies: Generalized weakness Immunocompromised: denies: Immunocompromised PD PAST MEDICAL HISTORY - Past Medical History Cardiovascular: Hypertension Respiratory: None Endocrine/Autoimmune: None GI: Other : None HEENT: None Psych: Depression Musculoskeletal: None Derm: None - Past Surgical History Past Surgical History: Yes HEENT: Tonsil/Adenoidectomy - Present Medications Home Medications: Ambulatory Orders Medication Instructions Recorded Confirmed No Known Home Medications 06/27/19 06/27/19 - Allergies Allergies/Adverse Reactions: Allergies Allergy/AdvReac Type Severity Reaction Status Date / Time No Known Drug Allergies Allergy Verified 06/27/19 10:23 - Social History Does the pt smoke?: Yes Smoking Status: Current every day smoker Does the pt drink ETOH?: No Does the pt have substance abuse?: No - Immunizations Immunizations are current?: Yes - POLST Patient has POLST: No PD ED PE NORMAL - Vitals Vital signs reviewed: Yes - General General: Alert and oriented X 3, No acute distress - HEENT HEENT: PERRL - Neck Neck: Supple, no meningeal sign - Cardiac Cardiac: RRR, No murmur - Respiratory Respiratory: Clear bilaterally - Abdomen Abdomen: Normal bowel sounds, Soft, Non tender, Non distended - Male Male : Other (Penis is uncircumcised, normal in appearance, no lesions. Testicles have normal lie, no hernias.) - Derm Derm: Warm and dry - Extremities Extremities: No deformity - Neuro Neuro: Alert and oriented X 3 - Psych Psych: Normal mood, Normal affect Results - Vitals Vitals: Vital Signs - 24 hr 06/27/19 06/27/19 06/27/19 10:22 11:40 12:52 Temperature 36.6 C Heart Rate 97 88 85 Respiratory 20 18 18 Rate Blood Pressure 164/111 H 174/116 H 164/117 H O2 Saturation 98 100 100 Oxygen O2 Source Room air - Labs Labs: Laboratory Tests 06/27/19 06/27/19 06/27/19 10:30 10:30 11:39 WBC 9.0 RBC 5.73 Hgb 16.3 Hct 48.4 MCV 84.5 MCH 28.4 MCHC 33.7 RDW 13.1 Plt Count 258 MPV 8.0 Neut # (Auto) 6.8 H Lymph # (Auto) 1.1 L [place] # (Auto) 0.9 Eos # (Auto) 0.1 Baso # (Auto) 0.0 Absolute Nucleated RBC 0.00 Nucleated RBC % 0.0 Sodium 134 L Potassium 4.3 Chloride 100 L Carbon Dioxide 25 Anion Gap 9.0 BUN 11 Creatinine 1.0 Estimated GFR (MDRD) 84 L Glucose 101 H Calcium 9.2 Total Bilirubin 0.5 AST 21 ALT 28 Alkaline Phosphatase 73 Total Protein 6.7 Albumin 3.9 Globulin 2.8 Albumin/Globulin Ratio 1.4 Lipase 31 Urine Color YELLOW Urine Clarity CLOUDY Urine pH 8.0 H Ur Specific [place] 1.020 Urine Protein NEGATIVE Urine Glucose (UA) NEGATIVE Urine Ketones NEGATIVE Urine Occult Blood NEGATIVE Urine Nitrite NEGATIVE Urine Bilirubin NEGATIVE Urine Urobilinogen 0.2 (NORMAL) Ur Leukocyte Esterase NEGATIVE Urine RBC None Seen Urine WBC 0-3 Ur Squamous Epith Cells NONE SEEN Amorphous Sediment Moderate Urine Bacteria Rare Ur Microscopic Review INDICATED Urine Culture Comments NOT INDICATED PD MEDICAL DECISION MAKING - ED course Complexity details: considered differential (UTI, cystitis, testicular torsion, epididymitis, nephrolithiasis, pyelonephritis) ED course: On examination patient is well-appearing, vital signs notable for hypertension. His abdomen is benign. His external genitalia are normal in appearance, there are no signs of hernia or torsion. The long-standing nature of his discomfort makes acute abdominal pathology or acute genitourinary pathology less likely. Given that he is going to long-term tomorrow and will not have close follow-up, CT of the abd/pelvis was obtained to assess for nephrolithiasis or other abdomen/pelvis pathology, It shows some nonobstructing stones, but no obstructing nephrolithiasis. Labs unrevealing. No other acute abdominal fin dings. I discussed this result with him, and recommended primary care follow-up on his discomfort. He may take Tylenol and ibuprofen for his symptoms. I reviewed return precautions including worsening pain, persistent vomiting, fever, or other concerning symptoms and he was discharged home. Departure - Departure Disposition: Home, Self Care Clinical Impression: Suprapubic pain Condition: Good Instructions: ED Abdominal Pain Unkn Cause Follow-Up: Your,PCP [Other] - Within 1 week Comments: We do not see an obvious cause of your pain on our studies today. You do have some kidney stones in your kidneys, but they are not in the location where they are going to pass or cause you discomfort at this time. You may take Tylenol and ibuprofen for your discomfort. If you are having worsening symptoms such as increasing abdominal pain or other concerning symptoms return to the emergency department. Otherwise please follow-up with your primary care provider
[2019-06-27 12:17] LABS: AMORPHOUS SEDIMENT,UR Moderate /LPF; BACTERIA,URINE Rare /HPF (None Seen); RBC,URINE None Seen /HPF (0-5); SQUAMOUS EPITHELIAL CELL,UR NONE SEEN (<= Few)
--- NOTE | 2019-06-27 12:50 | CT Report ---
Reason: abd pain Procedure Date: 06/27/2019 Accession Number: [id number] / [id number] Procedure: CT - Abdomen/Pelvis WO CPT Code: Final Report FULL RESULT: EXAM: CT ABDOMEN AND PELVIS EXAM DATE: 06/27/2019 12:00 PM. CLINICAL HISTORY: Abd pain. COMPARISONS: KUB 09/05/2016 1:48 PM. TECHNIQUE: Routine helical CT imaging was performed through the abdomen and pelvis. IV contrast: None. Enteric contrast: No. Reconstructions: Coronal and sagittal. In accordance with CT protocol optimization, one or more of the following dose reduction techniques were utilized for this exam: automated exposure control, adjustment of mA and/or KV based on patient size, or use of iterative reconstructive technique. FINDINGS: Lung Bases: Unremarkable. Liver: No focal liver lesions are seen. Gallbladder/Bile Ducts: Unremarkable. Spleen: Normal. Pancreas: Normal. Adrenal Glands: Normal. Kidneys: No hydroureteronephrosis bilaterally. No perinephric fat stranding. 3 mm nonobstructing right interpolar renal calculus (3/71), and 6 mm nonobstructing left upper pole renal calculus (3/53) noted. Peritoneal Cavity/Bowel: Unremarkable stomach. Normal caliber small bowel loops without signs of wall thickening. Appendix appears normal. No enlarged intraperitoneal or retroperitoneal lymph nodes. No intra-abdominal fluid collections. Pelvic Organs: Unremarkable urinary bladder for degree of distention on noncontrast evaluation. No bladder calculi. Prostate and seminal vesicles appear normal. No enlarged pelvic or inguinal lymph nodes. Vasculature: No aneurysms or other significant abnormality. Bones: No significant abnormality. Other: None. IMPRESSION: 1. Bilateral nonobstructing renal calculi. No obstructing calculi nor hydroureteronephrosis bilaterally. 2. Unremarkable appearance of the urinary bladder without calculi. 3. No other acute abnormality seen in the abdomen or pelvis. Appendix appears normal. RADIA
[2019-06-27 12:53] VITALS: BP 164/117
== END 2019-06-27 13:10 | disposition home or self-care (01) ==
LOC: ED 10:17
DX: R10.9 Unspecified abdominal pain (principal); N20.0 Calculus of kidney; I10 Essential (primary) hypertension; F17.200 Nicotine dependence, unspecified, uncomplicated
CPT/HCPCS: 36415; 74176; 80053; 81001; 81003; 83690; 85025; 87086; 99282; 99284

== ENCOUNTER 2020-02-13 06:59 | Emergency (ER) | payer MEDICAID ==
[2020-02-13] MEDS ORDERED: HYDROmorphone 1 MG/ML CARPUJECT IVP STA ×2 (07:24→10:04)
[2020-02-13] MEDS ORDERED: KETOROLAC 30 MG/ML VIAL IVP STA (07:24)
[2020-02-13] MEDS ORDERED: SODIUM CHLORIDE 0.9% 1,000 ML IV STA (07:24)
--- NOTE | 2020-02-13 07:32 | ED Physician Documentation ---
History of Present Illness - Stated complaint Stated Complaint: ABD PX - Chief complaint Chief Complaint: Abd Pain - History obtained from History obtained from: Patient - Additonal information Additional information: Patient comes emergency department complaining of pain in his low back, "bladder area" and testicles that started around 2200 last night. Patient states that he has been having some nausea intermittently throughout the last week, but no abdominal pain. He states that he is intermittently been vomiting. Patient denies any dysuria or fevers. He states that he is work the last couple of days and that he probably has not been getting enough water to drink. He has noticed dark urine. Patient states he began to have the pain last night and that it seems to be getting worse. He states that similar to previous episodes of lower abdominal and testicular pain that he has had. The patient had been seen by urology up in [place] after presenting here with decreased blood flow to his left testicle in the setting of lower abdominal pain. However, they did not find active torsion when he arrived in [place], and so no emergent urologic intervention was undertaken. Patient was supposed to follow-up with urology sometime later, but never did. Patient states that he has not had any episodes of the pain in the last 7 months since he was last seen here. He denies any enl argement of either testicle that he is aware of. He states that he cannot tell which side hurts more if any. The patient denies any penile discharge. No fevers. No other complaints at this time. Review of Systems Ten Systems: 10 systems reviewed and negative Constitutional: reports: Reviewed and negative Eyes: reports: Reviewed and negative Ears: reports: Reviewed and negative Nose: reports: Reviewed and negative Throat: reports: Reviewed and negative Cardiac: reports: Reviewed and negative Respiratory: reports: Reviewed and negative GI: reports: Abdominal Pain, Nausea (None currently, But had earlier in the week), Vomiting (None currently, but had earlier in the week.) : reports: Testicular pain. denies: Dysuria Skin: reports: Reviewed and negative Musculoskeletal: reports: Reviewed and negative Neurologic: reports: Reviewed and negative Psychiatric: reports: Reviewed and negative Endocrine: reports: Reviewed and negative Immunocompromised: reports: Reviewed and negative PD PAST MEDICAL HISTORY - Past Medical History Past Medical History: Yes Cardiovascular: Hypertension Respiratory: None Endocrine/Autoimmune: None GI: Other : Kidney stones HEENT: None Psych: Depression Musculoskeletal: None Derm: None - Past Surgical History Past Surgical History: Yes HEENT: Tonsil/Adenoidectomy - Present Medications Home Medications: Ambulatory Orders Medication Instructions Recorded Confirmed Azithromycin [Zithromax] 0 mg PO DAILY #6 tablet 02/13/20 Hydrocodone/Acetaminophen 1 - 2 each PO Q6H PRN #14 tablet 02/13/20 [Hydrocodon-Acetaminophen 5-325] Ondansetron Odt [Zofran] 4 mg TL Q6H PRN #10 tablet 02/13/20 - Allergies Allergies/Adverse Reactions: Allergies Allergy/AdvReac Type Severity Reaction Status Date / Time No Known Drug Allergies Allergy Verified 02/13/20 07:14 - Social History Does the pt smoke?: Yes Smoking Status: Current every day smoker Does the pt drink ETOH?: No Does the pt have substance abuse?: No - Immunizations Immunizations are current?: Yes - POLST Patient has POLST: No PD ED PE NORMAL - Vitals Vital signs reviewed: Yes - General General: Alert and oriented X 3, Well developed/nourished, Other (Patient appears in moderate distress, grimacing and tensing in pain.) - HEENT HEENT: PERRL - Neck Neck: Supple, no meningeal sign - Cardiac Cardiac: RRR, No murmur, Strong equal pulses - Respiratory Respiratory: No respiratory distress, Clear bilaterally - Abdomen Abdomen: Soft, Non distended, Other (Mild tenderness in the low abdomen diffusely. No rebound or guarding.) - Male Male : Other (Patient has a grossly enlarged, firm, tender testicle on the right with soft, normal testicle on the left. Lie is normal. No garcia clap deformity. Cremasteric reflex absent bilaterally. No scrotal skin changes. No testicular mass.) - Back Back: No CVA TTP - Derm Derm: Normal color, Warm and dry, No rash - Extremities Extremities: No deformity, No edema, No calf tenderness / cord - Neuro Neuro: Alert and oriented X 3, Other (Grossly normal) - Psych Psych: Normal mood, Normal affect Results - Vitals Vitals: Vital Signs - 24 hr 02/13/20 02/13/20 02/13/20 07:10 08:49 10:42 Temperature 36.8 C Heart Rate 89 108 H 98 Respiratory 24 18 18 Rate Blood Pressure 138/90 H 148/89 H 153/88 H O2 Saturation 100 100 98 Oxygen O2 Source Room air - Labs Labs: Laboratory Tests 02/13/20 02/13/20 02/13/20 07:16 07:16 08:43 WBC 15.2 H RBC 5.08 Hgb 15.2 Hct 42.6 MCV 83.9 MCH 29.9 MCHC 35.7 RDW 13.4 Plt Count 191 MPV 8.9 Neut # (Auto) Not Reportable Lymph # (Auto) Not Reportable [place] # (Auto) Not Reportable Eos # (Auto) Not Reportable Baso # (Auto) Not Reportable Absolute Nucleated RBC Not Reportable Total Counted 100 Band Neuts % (Manual) 5 Abnorm Lymph % (Manual) 0 Nucleated RBC % Not Reportable Neutrophils # (Manual) 11.7 H Lymphocytes # (Manual) 1.4 L Monocytes # (Manual) 2.1 H Eosinophils # (Manual) 0.0 Basophils # (Manual) 0.0 Differential Comment MANUAL DIFFERENTIAL WBC Morphology NORMAL APPEARANCE Platelet Estimate NORMAL (130-450,000) Platelet Morphology NORMAL APPEARANCE RBC Morph Micro Appear NORMAL APPEARANCE Sodium 132 L Potassium 3.5 Chloride 102 Carbon Dioxide 19 L Anion Gap 11.0 BUN 17 Creatinine 1.1 Estimated GFR (MDRD) 75 L Glucose 123 H Calcium 8.8 Total Bilirubin 1.6 H AST 19 ALT 26 Alkaline Phosphatase 75 Total Protein 7.0 Albumin 3.8 Globulin 3.2 Albumin/Globulin Ratio 1.2 Lipase 30 Urine Color YELLOW Urine Clarity CLEAR Urine pH 6.5 Ur Specific [place] 1.020 Urine Protein NEGATIVE Urine Glucose (UA) NEGATIVE Urine Ketones 40 H Urine Occult Blood NEGATIVE Urine Nitrite POSITIVE H Urine Bilirubin NEGATIVE Urine Urobilinogen 2 H Ur Leukocyte Esterase SMALL H Urine RBC None Seen Urine WBC 4-5 Ur Squamous Epith Cells NONE SEEN Urine Crystals 0-2 Calcium Oxalate Urine Bacteria Few Urine Mucus Moderate Strands Ur Microscopic Review INDICATED Urine Culture Comments INDICATED - Rads (name of study) testicular/scrotal US Radiology: Final report received, EMP read indepedently, See rad report (Final radiologist interpretation: Right-sided epididymoorchitis; bilateral hydroceles right larger than left.) PD MEDICAL DECISION MAKING - ED course Complexity details: reviewed old records, reviewed results, re-evaluated patient, considered differential, d/w patient ED course: Given the severity of the patient's pain, his tender and enlarged testicle, and the history of potential intermittent torsion, I was concerned that the patient may have developed a torsion at this time. Given this concern, I did attempt an open book maneuver to try to detorsed the right testicle, if torsion was indeed present. Patient did not tolerate this attempt well, due to tenderness of the testicle, and the testicle was unable to be moved out of its position. I did not note a garcia clap deformity, which did argue against torsion, though did not rule it out. I did immediately order an ultrasound of the patient's testicle. IV fluids were started and laboratory studies were obtained. Patient was given IV Dilaudid and Toradol for his discomfort. Patient's testicular ulcers ult rasound did show good flow to the testicle as well as hyperemia of the epididymis. The epididymis was found to be significantly thickened. I spoke with the radiologist about these findings and relayed my findings on exam and he stated that the epididymis is of sufficient size to account for the nearly double size of the right testicular complex versus the left. I spoke with Dr. Duncan of urology, given the patient's history of possible intermittent torsion, and she did not feel that these findings were sick consistent with a spontaneous resolution of torsion. She did state that she would like the patient to be treated with antibiotics for potential epididymoorchitis and plan to follow-up in her office within the next week. I relayed these instructions to the patient, who is feeling much better after symptomatic management. The patient's labs were unremarkable except for a moderate leukocytosis. Patient's been given Rocephin and Zithromax in the emergency department. He is also found to have a urinary tract infection, and has been started on Bactrim for this. We have discussed that if the patient develops sudden onset severe pain again, he should come to the emergency department immediately for evaluation of his testicle, rather than waiting 11 hours, during which time he could potentially lose the testicle if torsion is present. Patient expressed understanding Departure - Departure Disposition: 01 Home, Self Care Clinical Impression: Epididymo-orchitis Condition: Stable Instructions: ED Epididymitis, ED Orchitis Follow-Up: Lori Duncan MD [Physician No Access] - Prescriptions: Hydrocodone/Acetaminophen [Hydrocodon-Acetaminophen 5-325] 1 - 2 each PO Q6H PRN #14 tablet PRN Reason: pain Azithromycin [Zithromax] 0 mg PO DAILY #6 tablet Ondansetron Odt [Zofran] 4 mg TL Q6H PRN #10 tablet PRN Reason: Nausea / Vomiting Comments: Your ultrasound does not show a twisting of your testicle. Your labs overall look good. You do have inflammation and enlargement of the tissues around your right testicle, which suggests infection most of the time. However, given the history of potential intermittent torsion, or twisting, it is very important that you still follow-up with urology. If you do have a torsion that is not discovered within a matter of hours, you can lose your testicle completely from the blood flow being cut off, so it is very important that the potential for this problem is evaluated by a specialist and fixed if present. However, today's symptoms do not appear to be related to this. Please take the antibi otics and pain medication, as needed. You may also take the nausea medicine as needed if you have further episodes of nausea. If you develop a new episode of the pain in the future, please return to the emergency department immediately. Discharge Date/Time: 02/13/20 10:48
[2020-02-13 07:44] LABS: ALBUMIN 3.8 g/dL (3.2-5.5); ALBUMIN/GLOBULIN RATIO 1.2 (1.0-2.2); BILIRUBIN,TOTAL 1.6 mg/dL (0.2-1.0); CALCIUM 8.8 mg/dL (8.5-10.3); CREATININE 1.1 mg/dL (0.6-1.2)
[2020-02-13 08:02] LABS: BASOPHILS % (AUTO) 0.3 %; EOSINOPHILS % (AUTO) 0.1 %; HGB - HEMOGLOBIN 15.2 g/dL (14.0-18.0); LYMPHOCYTES % (AUTO) 5.5 %; MEAN CORPUSCULAR HEMOGLOBIN 29.9 pg (27.0-31.0); MEAN CORPUSCULAR HGB CONC 35.7 g/dL (32.0-36.0); MEAN CORPUSCULAR VOLUME 83.9 fL (80.0-94.0); MEAN PLATELET VOLUME 8.9 fL (7.4-11.4); MONOCYTES % (AUTO) 10.8 %; PLT - PLATELET COUNT 191 10^3/uL (130-450); RED BLOOD COUNT 5.08 10^6/uL (4.70-6.10); RED CELL DISTRIBUTION WIDTH 13.4 % (12.0-15.0); WHITE BLOOD COUNT 15.2 x10^3/uL (4.8-10.8)
[2020-02-13 08:12] LABS: ABNORMAL LYMPHS % (MANUAL) 0 %
[2020-02-13 08:33] LABS: BAND NEUTROPHILS % (MANUAL) 5 %; DIFFERENTIAL COMMENT MANUAL DIFFERENTIAL; LYMPHOCYTES # (MANUAL) 1.4 10^3/uL (1.5-3.5); LYMPHOCYTES % (MANUAL) 9 %; MONOCYTES # (MANUAL) 2.1 10^3/uL (0.0-1.0); PLATELET ESTIMATE, MANUAL NORMAL (130-450,000) (NORMAL); PLATELET MORPHOLOGY NORMAL APPEARANCE (NORMAL); RBC MORPHOLOGY (MULTIPLE) NORMAL APPEARANCE (NORMAL)
[2020-02-13 09:03] LABS: BILIRUBIN,URINE NEGATIVE (NEGATIVE); GLUCOSE, URINE (UA) NEGATIVE (NEGATIVE); KETONES,URINE (UA) 40 mg/dL (NEGATIVE); LEUKOCYTE ESTERASE, URINE SMALL (NEGATIVE); NITRITE,URINE POSITIVE (NEGATIVE); OCCULT BLOOD,URINE NEGATIVE (NEGATIVE); PH,URINE 6.5 PH (5.0-7.5); PROTEIN,URINE NEGATIVE (NEGATIVE); UROBILINOGEN,URINE 2 E.U./dL (NORMAL)
[2020-02-13 09:12] LABS: CLARITY,URINE CLEAR (CLEAR)
--- NOTE | 2020-02-13 09:14 | Ultrasound Report ---
PROCEDURE: Testicle w/Doppler INDICATIONS: pain, enlargement, h/o partial torsion TECHNIQUE: Real-time scanning was performed of the scrotum and testicles, with image documentation. Color and p ulse Doppler interrogation was performed of both testicles. COMPARISON: 05/06/2018 FINDINGS: Right: Testicle is normal in size at 5 x 3.4 x 3.4 cm. A few right testicle microliths can be seen. Epididymis is normal in overall size and morphology. There is a small to moderate right-sided hydroc jin. No varicoceles. Overlying scrotal skin is normal in thickness. Left: Testicle is normal in size at 4.4 x 2.1 x 3 cm. A few left testicle microliths are seen. Epid idymis is normal in overall size and morphology. There is a trace left-sided hydrocele. No varicocel es. Overlying scrotal skin is normal in thickness. Doppler: There is increased vascularity seen within the right testicle and within the right epididymi s. Normal vascularity is seen on the left side. IMPRESSION: Right-sided epididymoorchitis. Bilateral hydroceles are seen, right larger than left. Note: Concordant biliary findings given by the end finder twisting department upon the completion of the examination to Dr. Casas at 8:40 AM on 02/13/2020 Reviewed by: Cruz Buck MD on 02/13/2020 8:12 AM AKKATHLEEN Approved by: Cruz Buck MD on 02/13/2020 8:12 AM AKKATHLEEN Station ID: [id number]
[2020-02-13 09:15] LABS: BACTERIA,URINE Few /HPF (None Seen); RBC,URINE None Seen /HPF (0-5); SQUAMOUS EPITHELIAL CELL,UR NONE SEEN (<= Few)
[2020-02-13 09:16] LABS: CRYSTALS,URINE 0-2 Calcium Oxalate /LPF; MUCUS,URINE Moderate Strands
[2020-02-13] MEDS ORDERED: AZITHROMYCIN 250 MG TABLET PO STA (09:31)
[2020-02-13] MEDS ORDERED: cefTRIAXone 1 GM VIAL IM STA (09:31)
[2020-02-13] MEDS ORDERED: LIDOCAINE 1% 2 ML VIAL MC ONE (09:31)
[2020-02-13 10:43] VITALS: BP 153/88
== END 2020-02-13 10:48 | disposition home or self-care (01) ==
LOC: ED 06:59
DX: N45.3 Epididymo-orchitis (principal); N43.3 Hydrocele, unspecified; N39.0 Urinary tract infection, site not specified; I10 Essential (primary) hypertension; F17.200 Nicotine dependence, unspecified, uncomplicated
CPT/HCPCS: 36415; 76870; 80053; 81001; 83690; 85025; 87077; 87086; 87181; 93975; 96361; 96372; 96374; 96376; 99284; 99285; A9270; J1170; 81003

== ENCOUNTER 2020-05-09 15:48 | Emergency (ER) | payer MEDICAID ==
[2020-05-09 16:08] VITALS: BP 180/100
== END 2020-05-09 18:46 | disposition home or self-care (01) ==
LOC: ED 15:48
DX: Z53.21 Procedure and treatment not carried out due to patient leaving prior to being seen by health care provider (principal)

== ENCOUNTER 2020-07-22 11:46 | Emergency (ER) | payer MEDICAID ==
[2020-07-22 12:20] LABS: BILIRUBIN,URINE NEGATIVE (NEGATIVE); GLUCOSE, URINE (UA) NEGATIVE (NEGATIVE); KETONES,URINE (UA) NEGATIVE (NEGATIVE); LEUKOCYTE ESTERASE, URINE NEGATIVE (NEGATIVE); NITRITE,URINE NEGATIVE (NEGATIVE); OCCULT BLOOD,URINE NEGATIVE (NEGATIVE); PROTEIN,URINE NEGATIVE (NEGATIVE); UROBILINOGEN,URINE 0.2 (NORMAL) E.U./dL (NORMAL)
[2020-07-22 12:21] LABS: CLARITY,URINE CLEAR (CLEAR)
--- NOTE | 2020-07-22 13:44 | ED Physician Documentation ---
History of Present Illness - Stated complaint Stated Complaint: MALE - Chief complaint Chief Complaint: General - History obtained from History obtained from: Patient - Additonal information Additional information: 39-year-old male who is homeless presents to the emergency department for 2 concerns 1. Intermittent bilateral though left greater than right testicular pain. He believes he may have epididymitis or orchitis. He has had this in the past and was previously seen in [place] for similar. He has no history of torsion. He denies dysuria urgency or frequency. No penile discharge. He was seen in this emergency department in January for dysuria and did have an E. coli urinary tract infection. He denies sex with men or penetrative rectal sex. 2. Right thigh swelling and erythema for 5 days. There is a pinpoint staying in the center. Patient is unsure how this occurred. He denies that he has had any injection drug use though he does admit to smoking illicit substances. Review of Systems Constitutional: denies: Fever, Chills Eyes: reports: Reviewed and negative Ears: reports: Reviewed and negative Nose: reports: Reviewed and negative Throat: reports: Reviewed and negative Cardiac: reports: Reviewed and negative Respiratory: reports: Reviewed and negative GI: denies: Nausea : reports: Testicular pain. denies: Dysuria, Frequency, Hesitancy, Discharge Skin: reports: Lesions (right thigh) Musculoskeletal: reports: Reviewed and negative PD PAST MEDICAL HISTORY - Past Medical History Past Medical History: Yes Cardiovascular: Hypertension Respiratory: None Neuro: None Endocrine/Autoimmune: None GI: Other : Kidney stones HEENT: None Psych: Depression Musculoskeletal: None Derm: None - Past Surgical History Past Surgical History: Yes HEENT: Tonsil/Adenoidectomy - Present Medications Home Medications: Ambulatory Orders Medication Instructions Recorded Confirmed Doxycycline Hyclate 100 mg PO BID 10 Days #20 tablet. 07/22/20 - Allergies Allergies/Adverse Reactions: Allergies Allergy/AdvReac Type Severity Reaction Status Date / Time No Known Drug Allergies Allergy Verified 07/22/20 11:59 - Social History Does the pt smoke?: Yes Smoking Status: Current every day smoker Does the pt drink ETOH?: No ETOH Use: Beer Does the pt have substance abuse?: No - Immunizations Immunizations are current?: Yes - POLST Patient has POLST: No PD ED PE EXPANDED - General General: Alert, No acute distress, Disheveled, poorly kept - Neck Neck: Supple w/out meningeal sx, Adenopathy, No tenderness - Cardiac Cardiac: Regular Rate, Regular Rhythm, Radial strong equal, Cap refill < 2 sec - Respiratory Respiratory: Clear to ausultation camille. No: Distress, Labored - Abdomen Abdomen: Normal Bowel sounds. No: Tender to palpation - Male Male : Circumcised, Normal lie/cremastaric, Tenderness (Positive cremasteric bilaterally. Bilateral testicular swelling left greater than right. Epididymal cord palpable on both testes. No scrotal erythema or swelling), Other. No: Discharge, Testes descended camille - Derm Derm: Normal color, Warm and dry, Other (5 x 5 area of erythema and induration right anterior mid thigh. No fluctuance. Mild tenderness to palpation.) Results - Vitals Vitals: Vital Signs - 24 hr 07/22/20 11:55 Temperature 36.0 C L Heart Rate 90 Respiratory 16 Rate Blood Pressure 168/104 H O2 Saturation 99 Oxygen O2 Source Room air - Labs Labs: Laboratory Tests 07/22/20 12:01 Urine Color YELLOW Urine Clarity CLEAR Urine pH 7.0 Ur Specific Sanderson 1.020 Urine Protein NEGATIVE Urine Glucose (UA) NEGATIVE Urine Ketones NEGATIVE Urine Occult Blood NEGATIVE Urine Nitrite NEGATIVE Urine Bilirubin NEGATIVE Urine Urobilinogen 0.2 (NORMAL) Ur Leukocyte Esterase NEGATIVE Ur Microscopic Review NOT INDICATED Urine Culture Comments NOT INDICATED PD MEDICAL DECISION MAKING - ED course Complexity details: reviewed results, re-evaluated patient, considered differential, d/w patient ED course: 39-year-old male who is homeless presents to the emergency department with a number of months of bilateral testicular pain left greater than right. He does report a history of epididymitis. Ultrasound completed in January confirmed right greater than left epididymitis. Patient did not follow-up with urology as advised. Today the ultrasound confirms bilateral epididymitis though it has increased on the left side. No findings of orchitis. He also has an early cellulitis of the right thigh. In the emergency department this gentleman was given 1 g of ceftriaxone intramuscularly. This was both in coverage of epididymitis as well as the cellulitis. He will need to be discharged with a prescription for doxycycline for 10 days. I do have gonorrhea chlamydia screening pending on his urine. Pt was given # for Dr. fischer with urology in [facility] to f/u Departure - Departure Disposition: 01 Home, Self Care Clinical Impression: Epididymitis without abscess Cellulitis Qualifiers: Site of cellulitis: extremity Site of cellulitis of extremity: lower extremity Laterality: right Qualified Code(s): L03.115 - Cellulitis of right lower limb Condition: Stable Record reviewed to determine appropriate education?: Yes Instructions: Epididymitis Dc Follow-Up: Will Fischer MD [Provider Admit Priv/Credential] - Prescriptions: Doxycycline Hyclate 100 mg PO BID 10 Days #20 tablet. Comments: Kobi the ultrasound today shows that you have epididymitis in both of your testes. This is new from January. I have given you an injection of an antibiotic and I am prescribing doxycycline. You need to take this twice a day for the next 10 days. This antibiotic should also treat the cellulitis on your right thigh. It is very important that you schedule an appointment for follow-up with a urologist. Please call Dr. Fischer's office on Friday to schedule a follow-up to be done at the end of your antibiotic course. Return to the emergency department if you feel that your symptoms are worsening in any way
[2020-07-22] MEDS ORDERED: cefTRIAXone 1 GM VIAL IM STA (13:46)
[2020-07-22] MEDS ORDERED: LIDOCAINE 1% 2 ML VIAL MC ONE (13:46)
[2020-07-22 15:27] VITALS: BP 172/102
--- NOTE | 2020-07-22 15:57 | Ultrasound Report ---
PROCEDURE: Testicle w/Doppler INDICATIONS: bilateral test pain; ? orchitis vs epidiymitis TECHNIQUE: Real-time scanning was performed of the scrotum and testicles, with image documentation. Color and p ulse Doppler interrogation was performed of both testicles. COMPARISON: 02/13/2020, FINDINGS: Right: Testicle is normal in size at 4.0 x 2.0 x 2.9 cm, and homogenous in echotexture. . No hydro jessica or varicoceles. Overlying scrotal skin is normal in thickness. Enlargement of the epididymis a nd moderate hypervascularity. Left: Testicle is normal in size at 3.8 x 2.5 x 3.0 cm, and homogeneous in echotexture. No varicoc eles. Trace, mildly complex varicocele. Overlying scrotal skin is normal in thickness. Mild epididym al enlargement and moderate hypervascularity. Doppler: Color and pulse Doppler demonstrate normal and symmetric arterial flow in both testicles. IMPRESSION: 1. Bilateral epididymitis without orchitis. 2. Trace left reactive hydrocele. Reviewed by: Qian Rizo MD on 07/22/2020 3:55 PM PST Approved by: Qian Rizo MD on 07/22/2020 3:55 PM PST Station ID: [id number]
== END 2020-07-22 15:27 | disposition home or self-care (01) ==
LOC: ED 11:46
DX: N45.1 Epididymitis (principal); L03.115 Cellulitis of right lower limb; I10 Essential (primary) hypertension; F17.200 Nicotine dependence, unspecified, uncomplicated; Z59.0 Homelessness
CPT/HCPCS: 81001; 81003; 87086; 87491; 87591; 87661; 93975; 96372; 99284

== ENCOUNTER 2021-05-18 08:21 | Emergency (ER) | payer MEDICAID ==
--- NOTE | 2021-05-18 09:38 | XRAY Report ---
PROCEDURE: Ribs w/PA Chest RT INDICATIONS: pain x 1 week. TECHNIQUE: 2 views of the right ribs were acquired, along with a single view chest. COMPARISON: August 27, 2017. FINDINGS: SUPPORT DEVICES: None. LUNG/PLEURA: No focal consolidation or pulmonary edema. No pleural effusion or space-occupying pneumo thorax. MEDIASTINUM: The cardiomediastinal silhouette is within normal limits. BONES/SOFT TISSUES: No acute abnormality. IMPRESSION: 1.No acute cardiopulmonary abnormality. 2.No acute, displaced rib fracture appreciated. Reviewed by: Bobby Pink MD on 05/18/2021 9:37 AM PDT Approved by: Bobby Pink MD on 05/18/2021 9:37 AM PDT Station ID: [id number]
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
[2021-05-18] MEDS ORDERED: KETOROLAC 60 MG/2 ML VIAL IM STA (10:09)
[2021-05-18] MEDS ORDERED: CHERRY SYRUP 10 ML UDC PO ONE (10:09)
[2021-05-18] MEDS ORDERED: DEXAMETHASONE 10 MG/ML VIAL PO STA (10:09)
[2021-05-18 10:38] VITALS: BP 158/110
== END 2021-05-18 10:38 | disposition home or self-care (01) ==
LOC: ED 08:21
DX: S20.211A Contusion of right front wall of thorax, initial encounter (principal); X58.XXXA Exposure to other specified factors, initial encounter; Y93.H9 Activity, other involving exterior property and land maintenance, building and construction; F17.200 Nicotine dependence, unspecified, uncomplicated
CPT/HCPCS: 71101; 99283; A9270